=== PATIENT | female | born 1960 | race African-American/Black ===

== ENCOUNTER 2017-03-26 20:45 | Inpatient (IN) | payer SELFPAY ==
[~2017-03-26 20:45] MED LIST: ISOVUE-370 76%-LOCM 1 ML ONE
[2017-03-26 22:18] LABS: #Basophils 0.1 thou/uL (0.0-0.2); #Eosinphils 0.2 thou/uL (0.0-0.7); #Lymphocytes 3.7 thou/uL (1.20-3.40); #Monocytes 0.8 thou/uL (0.11-0.59); #Neutrophils 9.3 thou/uL (1.40-6.50); %Basophils 0.7 % (0.0-1.0); %Eosinophils 1.3 % (0.0-10.0); %Lymphocytes 26.4 % (21.0-51.0); %Monocytes 5.5 % (0.0-10.0); Hematocrit 43.9 % (36.0-47.0); Mean Platelet Volume 8.4 fL (7.4-10.4); Red Blood Cell (RBC) Count 4.52 mill/uL (4.20-5.40)
[2017-03-26] MEDS ORDERED: Ondansetron HCl/PF 4 MG/2 ML Vial ONE (22:26)
[2017-03-26 22:35] LABS: Lactic Acid - Sepsis 1.2 mmol/L (0.5-2.2)
[2017-03-26 22:39] LABS: ALT (SGPT) 25 U/L (8-55); AST (SGOT) 20 U/L (5-34); Alkaline Phosphatase 245 U/L (40-150); Anion Gap 13 mmol/L (10-20); BUN (Urea Nitrogen) 15 mg/dL (9.8-20.1); Bilirubin, Total 0.6 mg/dL (0.2-1.2); Calc. Creatinine Clearance 0 mL/min (70-130); Calcium 9.6 mg/dL (7.8-10.44); Carbon Dioxide 27 mmol/L (22-29); Chloride 94 mmol/L (98-107); Estimated GFR-MDRD 57; Globulin 4.2 g/dL (2.4-3.5); Protein, Total 7.6 g/dL (6.0-8.3)
--- NOTE | 2017-03-26 22:51 | CT ---
CT PELVIS WITH IV CONTRAST 03/26/17 HISTORY: Rule out rectal/perirectal abscess. Abscess of buttock for three days. FINDINGS: There is inflammatory change in the inferomedial aspect of the right buttock within the subcutaneous fat with a poorly loculated fluid collection measuring 5 x 2.5 cm. This does not appear to extend i n the rectal/perirectal region though there is some inflammatory stranding that extends superiorly. No bony destruction is seen in the pelvis and the hips. The uterus is present. The urinary bladder i s well distended. No free air, free fluid or lymphadenopathy is noted in the pelvis. A normal appear ing appendix is noted. IMPRESSION: Phlegmonous change/early abscess formation in the udhxcc-cfhjbqo-wgwyol aspect of the right buttock measuring 5 x 2.5 cm. POS: [facility]
[2017-03-26] MEDS ORDERED: Lidocaine 1% (PF) 30 ML VIAL ONE (23:55)
[2017-03-27] MEDS ORDERED: Piperacillin/Tazobactam 3.375 GM VIAL ONE
[2017-03-27] MEDS ORDERED: Insulin Regular 300 UNITS/3 ML VIAL ONE (01:40)
[2017-03-27] MEDS ORDERED: Ondansetron ODT 4 MG TAB SL PRN (02:03)
[2017-03-27] MEDS ORDERED: HYDROcodone/Acetaminophen 5/325 mg Tablet PO PRN ×2 (02:03)
[2017-03-27] MEDS ORDERED: Ondansetron HCl/PF 4 MG/2 ML Vial IVP PRN (02:03)
[2017-03-27] MEDS ORDERED: Sodium Chloride 0.9% 1,000 ML IV SCH (02:03)
[2017-03-27] MEDS ORDERED: Dextrose 50% Abboject 50 ML SYRINGE SLOW IVP PRN (02:17)
[2017-03-27] MEDS ORDERED: Ondansetron ODT 4 MG TAB PO PRN (02:17)
[2017-03-27] MEDS ORDERED: Acetaminophen 650 MG Suppository PR PRN (02:17)
[2017-03-27] MEDS ORDERED: Insulin Regular 300 UNITS/3 ML VIAL SC PRN (02:17)
[2017-03-27] MEDS ORDERED: Dextrose 5% in Water 1,000 ML IV PRN (02:17)
[2017-03-27 02:52] LABS: Hemoglobin A1c 16.5 % (4.0-6.0)
[2017-03-27 02:55] VITALS: BMI 26.6
[2017-03-27] MEDS: Sodium Chloride 0.9% 1,000 ML IV SCH ×3 (03:20→20:34)
[2017-03-27] MEDS: Insulin Regular 300 UNITS/3 ML VIAL SC PRN (05:16)
[2017-03-27] MEDS ORDERED: Piperacillin/Tazobactam 4.5 GM in Sodium Chloride 0.9% 100 ML IVPB SCH (06:00)
[2017-03-27 07:10] LABS: Hematocrit 44.7 % (36.0-47.0); Mean Platelet Volume 8.7 fL (7.4-10.4); Neutrophil 62 % (42-75); Red Blood Cell (RBC) Count 4.54 mill/uL (4.20-5.40); White Blood Cell (WBC) Count 11.9 thou/uL (4.8-10.8)
[2017-03-27 07:15] LABS: ALT (SGPT) 22 U/L (8-55); AST (SGOT) 23 U/L (5-34); Alkaline Phosphatase 195 U/L (40-150); Anion Gap 12 mmol/L (10-20); BUN (Urea Nitrogen) 9 mg/dL (9.8-20.1); Bilirubin, Total 0.8 mg/dL (0.2-1.2); Calc. Creatinine Clearance 91 mL/min (70-130); Calcium 8.8 mg/dL (7.8-10.44); Carbon Dioxide 22 mmol/L (22-29); Chloride 104 mmol/L (98-107); Estimated GFR-MDRD Greater than 90; Globulin 3.7 g/dL (2.4-3.5); Protein, Total 6.7 g/dL (6.0-8.3)
--- NOTE | 2017-03-27 08:11 | HP-2 ---
CODE STATUS: FULL. PRIMARY CARE PHYSICIAN: None. ATTENDING: Dr. Rin Huang. RESIDENT: Danae Parada DO. HISTORIAN: Patient. CHIEF COMPLAINT: Pain on buttock. HISTORY OF PRESENT ILLNESS: Patient is a 56-year-old -[place] female with past medical hist ory of diabetes mellitus, COPD, and poor medical compliance here with 3 day onset of pain in right b uttock started out as a small pimple. No drainage, no fever. Has tried warm soaks in the tub witho ut relief. Patient used to take Levemir 30 units in a.m. and 26 units in p.m. Has been off all med ications for 2 years since moving from [place]. She has had two prior abscesses in this area. In the ER, she was given 1 liter normal saline, 1 gram of vancomycin, 3.375 grams of Zosyn, 4 mg of mor phine and 4 mg of ondansetron. PAST MEDICAL HISTORY: 1. Diabetes mellitus type 2. 2. Chronic obstructive pulmonary disease. 3. Neuropathy. PAST SURGICAL HISTORY: None. ALLERGIES: LISINOPRIL causing angioedema. MEDICATIONS: None. FAMILY HISTORY: Noncontributory. SOCIAL HISTORY: Tobacco use, smokes 3 cigarettes per day. Denies alcohol use. Does smoke marijuan a daily. REVIEW OF SYSTEMS: General: Negative for fever, chills. Negative for night sweats. Respiratory: Negative for cough, congestion, shortness of breath. Cardiovascular: Negative for chest pain. Ga strointestinal: Negative for nausea, vomiting, diarrhea or constipation. Genitourinary: Negative for discharge. Skin: Positive for lesions on the right buttock. Musculoskeletal: Positive for kel n and tenderness. Neurologic: Negative for weakness or numbness. PHYSICAL EXAMINATION: VITAL SIGNS: Blood pressure 114/68, pulse 98, respiratory rate 16, T-max 99.4, pulse ox 98% on room air, current weight 70.31 kilograms. GENERAL: Alert and oriented x4, in no acute distress. Well-developed and appropriately interactive . EYES: EOMI. Conjunctivae within normal limits. NECK: Supple. CARDIOVASCULAR: Tachycardic with a regular rhythm. No murmurs or gallops Radial pulses 2+. RESPIRATORY: Normal effort, no retractions, inspiratory wheezes throughout. SKIN: Warm and dry with a 6 x 6 cm indurated area with surrounding fluctuance on the right medial c left. No drainage, no warmth, no erythema. EXTREMITIES: No clubbing or cyanosis. MUSCULOSKELETAL: Structure within normal limits. NEUROLOGIC: No focal deficits. PSYCHIATRIC: Appropriate. LABORATORY DATA: CBC, white blood cell count 14.0, hemoglobin 14.3, hematocrit 43.9, platelets 236. CMP: Sodium 130, potassium 4.3, chloride 94, CO2 of 27, BUN 15, creatinine 1.19, glucose 532, raul cium 9.7, total protein 7.6, albumin 3.4, total bilirubin 0.6, AST 20, ALT 25, alkaline phosphatase 245. Lactic acid 1.2. Anion gap is 9, corrected was 4. Albumin is 10.5. IMAGING: CT of the pelvis with IV contrast was performed, which showed phlegmonous change and early abscess formation in the inferior posterior medial aspect of the right buttock measuring 5 x 2.5 cm . ASSESSMENT AND PLAN: 1. Right buttock skin abscess - originally met systemic inflammatory response syndrome criteria wit h initial tachycardia and elevated white blood cells with source of infection. The patient has norm al lactic acid level and does not appear septic. We will transition to p.o. Bactrim for 5-7 days a fter I\T\D done in the ED. IV normal saline at 120 mL per hour. Admit to medical and expected jose th of stay is 1-2 days. Wound culture and blood cultures pending. 2. Diabetes mellitus, uncontrolled. Ten units of regular insulin now, we will make further adjustm ents after knowing how her body respond to this. Hemoglobin A1c to determine need for insulin versu s p.o. medications. Sliding scale insulin a.c. and at bedtime, Accu-Cheks. 3. Chronic obstructive pulmonary disease, wheezing on physical exam, patient reports at baseline, n o shortness of breath. P.r.nLuis Monk, outpatient followup. 4. Tobacco use, counseled on cessation. 5. Elevated alkaline phosphatase, likely acute phase reactant. We will repeat in the morning. 6. Marijuana abuse, counseling on cessation. 7. Venous thromboembolism prophylaxis, sequential compression devices. 8. Acute kidney injury versus chronic kidney disease. We will repeat in the morning, likely acute kidney injury secondary to dehydration. Disposition and length of hospital stay: 1-2 days. Symptomatic medications will be provided. History and physical exam as well as management was discussed with Dr. Rin Huang.
[2017-03-27] MEDS ORDERED: Sulfameth/Trimethoprim DS 800-160mg TAB PO SCH (09:00)
[2017-03-27] MEDS ORDERED: FLU VACC QS2017-18 36 mo. & older 0.5 ML SYRINGE IM ONE (09:00)
[2017-03-27] MEDS ORDERED: Insulin NPH/Reg Insulin Hm 300 UNITS/3 ML VIAL SC SCH ×2 (10:30→16:30)
--- NOTE | 2017-03-27 15:29 | ULT ---
RIGHT UPPER QUADRANT SONOGRAM: History: Right upper quadrant pain. FINDINGS: Biliary sludge is present within the dependent portion of the gallbladder lumen. No gallbladder wall thickening or pericholecystic fluid are apparent. Common duct is dilated at 1.0 cm. Liver is unrema rkable without focal mass or intrahepatic biliary dilatation. IMPRESSION: 1. Biliary sludge within the gallbladder is consistent with chronic gallbladder dyskinesis. 2. Dilated common duct of 1.0 cm. Clinical correlation regarding other signs and symptoms of central biliary obstruction is required. Please consider gastroenterologic consultation. CT of the pancreas could be used for a better delineation of the region of the ampulla of Vater. POS: [facility]
[2017-03-27] MEDS: Sulfamethoxazole/Trimethoprim 160 MG in Dextrose 5% in Water 250 ML IVPB SCH ×2 (20:31)
[2017-03-28] MEDS: Acetaminophen 325 MG TAB PO PRN ×2 (01:20→18:16)
[2017-03-28] MEDS: Insulin Regular 300 UNITS/3 ML VIAL SC PRN ×2 (05:13→11:28)
[2017-03-28 06:36] LABS: ALT (SGPT) 23 U/L (8-55); AST (SGOT) 30 U/L (5-34); Alkaline Phosphatase 174 U/L (40-150); Anion Gap 9 mmol/L (10-20); BUN (Urea Nitrogen) 8 mg/dL (9.8-20.1); Bilirubin, Total 0.4 mg/dL (0.2-1.2); Calc. Creatinine Clearance 91 mL/min (70-130); Calcium 8.5 mg/dL (7.8-10.44); Carbon Dioxide 23 mmol/L (22-29); Chloride 107 mmol/L (98-107); Estimated GFR-MDRD Greater than 90; Globulin 3.3 g/dL (2.4-3.5); Protein, Total 6.1 g/dL (6.0-8.3)
[2017-03-28 06:37] LABS: #Eosinphils 0.2 thou/uL (0.0-0.7); #Lymphocytes 2.6 thou/uL (1.20-3.40); #Monocytes 0.4 thou/uL (0.11-0.59); #Neutrophils 3.8 thou/uL (1.40-6.50); %Basophils 0.4 % (0.0-1.0); %Eosinophils 3.1 % (0.0-10.0); %Lymphocytes 36.7 % (21.0-51.0); %Monocytes 6.1 % (0.0-10.0); Hematocrit 39.7 % (36.0-47.0); Red Blood Cell (RBC) Count 4.02 mill/uL (4.20-5.40)
--- NOTE | 2017-03-28 06:39 | PDOC.FM ---
- Subjective Subjective: Patient states she did well overnight, just got a little short of breath because of her COPD. States that she has a pump at home but cannot remember what medication it is. She only needs to use it occasionally. She improved last night with a breathing treatment. She denies fevers, chills, chest pain, n /v/d/abd pain. I&D site is painless and doing well. She states that she has not had a BM since admission but she states that she is also not walking around the hospital, only ambulating to go to bathroom. - Objective MAR Reviewed: Yes Vital Signs & Weight: Vital Signs (12 hours) Temp Pulse Resp BP Pulse Ox 03/28/17 04:00 97.8 F 72 18 108/69 93 L 03/28/17 00:00 98.3 F 92 18 94/55 L 96 03/27/17 22:18 78 16 98 03/27/17 20:00 99.9 F H 77 18 108/67 97 03/27/17 19:37 99.9 F H 77 18 96 I&O: 03/26/17 03/27/17 03/28/17 06:59 06:59 06:59 Intake Total 700 1989 Balance 700 1989 Result Diagrams: 03/28/17 05:27 03/28/17 05:27 Phys Exam - Physical Examination Constitutional: NAD HEENT: moist MMs, sclera anicteric Neck: supple, full ROM Respiratory: no wheezing, no rales, no rhonchi, clear to auscultation bilateral Cardiovascular: RRR, no significant murmur, no rub Gastrointestinal: soft, non-tender, no distention, positive bowel sounds Musculoskeletal: no edema, pulses present Neurological: non-focal, moves all 4 limbs Psychiatric: A&O x 3 Dx/Plan (1) Sepsis Code(s): A41.9 - SEPSIS, UNSPECIFIED ORGANISM Status: Resolved Plan: Initially met SIRS criteria with tachycardia and elevated WBC count with source of infection. -Sepsis is now resolved, stable vitals, down-trending WBC count -continue to monitor vitals -continue bactrim (2) Diabetes mellitus Code(s): E11.9 - TYPE 2 DIABETES MELLITUS WITHOUT COMPLICATIONS Status: Acute Plan: HbA1c: 16.5 on admission, has not taken insulin in years -20U BID of 70/30 yesterday, blood sugars ranged from 140-260 -increasing to 25U BID today -continue accuchecks -continue mild SSI -consulted case management to work on funding for insulin at d/c -patient will need close follow up outpatient for diabetes management (3) Abscess of right buttock Code(s): L02.31 - CUTANEOUS ABSCESS OF BUTTOCK Status: Acute Plan: S/p I&D -monitor for signs of worsening infection -continue abx (4) HOLLY (acute kidney injury) Code(s): N17.9 - ACUTE KIDNEY FAILURE, UNSPECIFIED Status: Acute Plan: Initial Cr 1.19 Has since resolved, continue to monitor (5) Elevated alkaline phosphatase level Status: Acute Plan: RUQ yesterday showed biliary sludge and biliary dyskinesia, common bile duct 1.0 cm -pt may need OP GI work up -not currently having RUQ abd pain (6) COPD (chronic obstructive pulmonary disease) Status: Acute Plan: Received Breathing treatment last night -lungs are clear now -no dyspnea -PRN anjana (7) Tobacco use Code(s): Z72.0 - TOBACCO USE Status: Acute (8) Marijuana use Code(s): F12.90 - CANNABIS USE, UNSPECIFIED, UNCOMPLICATED Status: Acute
[2017-03-28] MEDS ORDERED: Insulin NPH/Reg Insulin Hm 300 UNITS/3 ML VIAL SC SCH (07:30)
[2017-03-28] MEDS: Sulfamethoxazole/Trimethoprim 160 MG in Dextrose 5% in Water 250 ML IVPB SCH ×4 (08:45→21:25)
[2017-03-28] MEDS: Sodium Chloride 0.9% 1,000 ML IV SCH ×2 (08:45→21:42)
[2017-03-28] MEDS: Polyethylene Glycol 3350 17 GM Packet PO SCH (11:21)
--- NOTE | 2017-03-28 14:09 | ADD-PRG ---
ADDENDUM: 03/28/2017 This is an addendum to the note of Dr. Tra Leo. Ms. Romeo is a pleasant 56-year-old black female who was admitted with a right buttock abscess. Oscar clifton is a very poorly controlled type 2 diabetic and also has COPD. She was incidentally noted to have an elevated alkaline phosphatase and a subsequent right upper quadrant ultrasound showed dilation o f the common bile duct. Before discharge, we will consult GI to see if ERCP is indicated. However, the patient denies any abdominal pain either on this hospitalization or remotely. We will also dis charge on appropriate oral antibiotics for followup at [facility].
--- NOTE | 2017-03-28 15:34 | CON ---
DATE OF CONSULTATION: 03/28/2017 REFERRING PHYSICIAN: Tra Leo M.D., [facility] Practice Service. REASON FOR CONSULTATION: Abnormal abdominal sonogram showing dilation of common bile duct to 1 cm. HISTORY OF PRESENT ILLNESS: Ms. Nanci Romeo is a 56-year-old female hospitalized with cellulitis of abscess over the right back area. She is on antibiotic therapy. The patient has diabetes mellitus and has been on insulin before. She was living in [place] before. She moved to [place] 3 years ago. Since she moved to [place] she stopped taking all the medicine and has been mostl y on diet and her blood sugar was well controlled. The patient also has history of COPD and periphe ral neuropathy. She does smoke marijuana to get relieve from her peripheral neuropathy. She tells m e when she smokes marijuana she does not take medicine for the next 3-4 days. The patient has no ab dominal pain, no nausea or vomiting. She came to the ER basically because of right buttock abscess. She was found to have elevated alkaline phosphatase 243. An abdominal sonogram shows what appears to have biliary sludge and also receives common bile duct measuring approximately 1 cm. The patien t has no right upper quadrant pain, nausea, vomiting. She has good appetite. She has some vague ab dominal pain which was more actually lateral than medial. The pain is more over the flank area and also right upper chest. The patient's pain occurs at random and does not occur with meals. She bee d no nausea, nor vomiting. Her bowel movements are fairly regular. She usually [facility] a day. However, since Tuesday she had no stool and today she had a stool today. No hematoche marcos or melena. She has no other relevant history. ALLERGIES: None. SOCIAL HISTORY: The patient is a smoker. She smokes 1-3 packs of cigarettes per day for the last s everal years ago, but cut down to about 8-9 cigarettes per day. She does not drink alcohol. No his tory of drug abuse, but does use marijuana to get relief from neuropathic pain. MEDICAL ILLNESSES: 1. Diabetes mellitus. 2. Chronic obstructive pulmonary disease. 3. Peripheral neuropathy. SURGERIES: None. FAMILY HISTORY: Father of mesothelioma. Her mother of a brain tumor. There is no histor y of CVA, any heart disease in the family. CURRENT MEDICATIONS: List reviewed. REVIEW OF SYSTEMS: CARDIAC NURSE: No history of TIA, no syncope, no seizure disorder, no chronic headache. RESPIRATORY: History of coughing off and on. No history of hemoptysis. No history of dyspnea. CARDIOVASCULAR: No chest pain, no palpitation, no dyspnea, orthopnea or PND. GASTROINTESTINAL: No abdominal pain, nausea, vomiting. No hematochezia or melena. GENITOURINARY: No dysuria, hematuria or frequency of urination. MUSCULOSKELETAL/ENDOCRINE/HEMATOLOGICAL: . CARDIAC NURSE: She has history of peripheral neuropathy and does smoke marijuana off and on to get some relie f. PHYSICAL EXAMINATION: GENERAL: The patient appears very comfortable. She is thin built. She is awake, alert, and commun icative. She is in no distress. VITAL SIGNS: Stable. She is afebrile. Pulse is 75, blood pressure 97/59. HEENT: Conjunctivae clear. NECK: Supple. No adenitis or thyromegaly noted. CARDIOVASCULAR: First and second heart sounds normal. LUNGS: Clear to auscultation. ABDOMEN: Soft to palpate. Abdomen is nontender. There is no organomegaly or masses. Bowel sounds are normal. EXTREMITIES: Reveal no edema. LABORATORY DATA: From today, WBC 7000, hemoglobin 12.7, hematocrit 39.7, MCV 98.7, platelet count 1 10,000, polymorphs 53, lymphocytes 36. Serum chemistries show sodium 135, potassium 4, chloride 107 , bicarbonate 23, BUN is 9, creatinine 0.76, glucose 263, calcium 8.5, bilirubin 0.4, AST 30, ALT 23 , alkaline phosphatase 174. Total protein 6.1. Abdominal sonogram shows biliary sludge and also common bile duct at 1 cm. IMPRESSION: 1. A 56-year-old female with a mildly elevated alkaline phosphatase, sonogram show ing dilated common bile duct. She had no definite pancreatic mass. She has really no specific GI s ymptoms. There is some abdominal pain, but the abdominal pain appears more lateral abdominal pain t zuniga right lower abdominal pain. 2. Right buttock abscess. 3. Diabetes mellitus. 4. Chronic obstructive pulmonary disease. 5. History of peripheral neuropathy. RECOMMENDATIONS: Obtain abdominal CAT scan and will make further recommendations. If the CAT scan does not show a pancreatic mass, may consider MRCP. I will make further recommendations after CAT s can of abdomen.
[2017-03-28] MEDS: Insulin NPH/Reg Insulin Hm 300 UNITS/3 ML VIAL SC SCH (18:17)
[2017-03-29 04:30] LABS: #Eosinphils 0.3 thou/uL (0.0-0.7); #Lymphocytes 2.9 thou/uL (1.20-3.40); #Monocytes 0.5 thou/uL (0.11-0.59); %Basophils 0.2 % (0.0-1.0); %Lymphocytes 43.3 % (21.0-51.0); %Monocytes 7.4 % (0.0-10.0); Hematocrit 39.2 % (36.0-47.0); Mean Platelet Volume 8.2 fL (7.4-10.4); Red Blood Cell (RBC) Count 4.01 mill/uL (4.20-5.40); White Blood Cell (WBC) Count 6.7 thou/uL (4.8-10.8)
[2017-03-29 05:25] LABS: ALT (SGPT) 27 U/L (8-55); AST (SGOT) 33 U/L (5-34); Alkaline Phosphatase 151 U/L (40-150); Anion Gap 11 mmol/L (10-20); BUN (Urea Nitrogen) 7 mg/dL (9.8-20.1); Bilirubin, Total 0.2 mg/dL (0.2-1.2); Calc. Creatinine Clearance 108 mL/min (70-130); Calcium 8.7 mg/dL (7.8-10.44); Carbon Dioxide 23 mmol/L (22-29); Chloride 109 mmol/L (98-107); Estimated GFR-MDRD Greater than 90; Globulin 3.3 g/dL (2.4-3.5); Protein, Total 5.9 g/dL (6.0-8.3)
--- NOTE | 2017-03-29 06:39 | PDOC.FM ---
- Subjective Subjective: Patient doing well this morning. Just returned from abdominal CT when I entered room. States she is feeling well. No chest pain, fever, chills, dyspnea , n/v/d. She did require a breathing treatment last night but feels better this morning. - Objective MAR Reviewed: Yes Vital Signs & Weight: Vital Signs (12 hours) Temp Pulse Resp BP Pulse Ox 03/28/17 20:00 98.4 F 70 16 127/80 97 03/28/17 19:42 98.4 F 70 16 97 Weight Admit Weight 70.3 kg Weight 70.3 kg I&O: 03/27/17 03/28/17 03/29/17 06:59 06:59 06:59 Intake Total 700 1989 Balance 700 1989 Result Diagrams: 03/29/17 04:02 03/29/17 04:02 Phys Exam - Physical Examination Constitutional: NAD HEENT: moist MMs, sclera anicteric Neck: supple, full ROM Respiratory: no wheezing, no rales, no rhonchi, clear to auscultation bilateral Cardiovascular: RRR, no significant murmur, no rub Gastrointestinal: soft, non-tender, no distention Musculoskeletal: no edema Neurological: non-focal, moves all 4 limbs Psychiatric: A&O x 3 Skin: cap refill <2 seconds Dx/Plan (1) Sepsis Code(s): A41.9 - SEPSIS, UNSPECIFIED ORGANISM Status: Resolved Plan: Initially met SIRS criteria with tachycardia and elevated WBC count with source of infection. -secondary to buttock abscess -Sepsis is now resolved, stable vitals, down-trending WBC count, now 6.7 -continue to monitor vitals -Switch to PO bactrim (2) Diabetes mellitus Code(s): E11.9 - TYPE 2 DIABETES MELLITUS WITHOUT COMPLICATIONS Status: Acute Plan: HbA1c: 16.5 on admission, has not taken insulin in years -20U BID of 70/30 yesterday, blood sugars ranged from 88-260 -changed to 22U BID -continue accuchecks -continue mild SSI -will go home with NPH/reg 70/30 -patient will need close follow up outpatient for diabetes management (3) Abscess of right buttock Code(s): L02.31 - CUTANEOUS ABSCESS OF BUTTOCK Status: Acute Plan: S/p I&D -monitor for signs of worsening infection -continue abx -continue wound care (4) HOLLY (acute kidney injury) Code(s): N17.9 - ACUTE KIDNEY FAILURE, UNSPECIFIED Status: Acute Plan: Initial Cr 1.19, now 0.64 Has since resolved, continue to monitor (5) Elevated alkaline phosphatase level Status: Acute Plan: RUQ yesterday showed biliary sludge and biliary dyskinesia, common bile duct 1.0 cm -not currently having RUQ abd pain, completely asymptomatic -GI consulted, Ordered CT abd/pelv for today -will follow recs (6) COPD (chronic obstructive pulmonary disease) Status: Acute Plan: Chronic, treated with PRN inhaler at home -no dyspnea -PRN duonebs -will discharge with daily medication (7) Tobacco use Code(s): Z72.0 - TOBACCO USE Status: Acute (8) Marijuana use Code(s): F12.90 - CANNABIS USE, UNSPECIFIED, UNCOMPLICATED Status: Acute
[2017-03-29] MEDS: Sodium Chloride 0.9% 1,000 ML IV SCH ×3 (07:12→16:36)
[2017-03-29] MEDS: Polyethylene Glycol 3350 17 GM Packet PO SCH (07:51)
[2017-03-29] MEDS: Sulfameth/Trimethoprim DS 800-160mg TAB PO SCH ×2 (07:51→20:44)
[2017-03-29] MEDS: Insulin NPH/Reg Insulin Hm 300 UNITS/3 ML VIAL SC SCH ×2 (07:51→16:44)
[2017-03-29] MEDS ORDERED: Ibuprofen 600 MG TAB PO PRN (10:22)
[2017-03-29] MEDS: Insulin Regular 300 UNITS/3 ML VIAL SC PRN (11:38)
--- NOTE | 2017-03-29 11:57 | ADD-PRG ---
DATE OF SERVICE: 03/29/2017 This is an addendum to the note of Dr. Tra Leo. Ms. Romeo states that she feels very well this morning. She is not short of breath. She is having no abdominal pain. She was seen in consultation by the GI Service and we appreciate their input. We are awaiting results of an abdominal CT scan to proceed with a possible ERCP as per GI.
--- NOTE | 2017-03-29 12:36 | CT ---
CT ABDOMEN AND PELVIS WITH AND WITHOUT CONTRAST: Date: 03/29/17 HISTORY: Pancreas protocol. Dilated common bile duct. Abscess on buttock. COMPARISON: CT pelvis dated 03/26/17, as well as gallbladder ultrasound dated 03/27/17. FINDINGS: The precontrast of the abdomen demonstrates mild atherosclerotic plaque of the aorta. There is dilat ation of the common bile duct down to the ampulla of Vater. The pancreatic duct size is at the upper limits of normal. No abnormal enhancing mass within the pancreatic head. Hypodensities present of t he inferior right kidney. Gallbladder, liver, and spleen are normal. No intrahepatic biliary dilatation. The appendix is normal. The right gluteal fold inflammation is improving. Small volume free fluid in the pelvis. The appendix is visualized and is normal. There are right external iliac lymph nodes which are mildly prominent and likely reactive. IMPRESSION: 1. Mild extrahepatic biliary dilatation measuring up to just under 1.0 cm without intrahepatic bili varghese dilatation. There is mild prominence of the pancreatic duct. 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 ERCP is recommended. No abnormal mass. 2. A few separate foci of arterial hyperenhancement in the right lobe of the liver not present on t he portal venous phase likely a sequelae of shunting. 3. Improving inflammatory response along the right gluteal fold likely reactive right inguinal lymp h nodes. POS: [facility]
[2017-03-29] MEDS: Ipratropium Bromide 2.5 ml Neb NEB SCH ×2 (13:50→18:41)
[2017-03-29] MEDS: Atorvastatin Calcium 20 MG TAB PO SCH (20:44)
[2017-03-30] MEDS: Ipratropium Bromide 2.5 ml Neb NEB SCH ×4 (00:33→18:28)
[2017-03-30] MEDS: Sodium Chloride 0.9% 1,000 ML IV SCH ×3 (03:04→20:46)
[2017-03-30 05:51] LABS: ALT (SGPT) 27 U/L (8-55); AST (SGOT) 31 U/L (5-34); Alkaline Phosphatase 152 U/L (40-150); Anion Gap 11 mmol/L (10-20); BUN (Urea Nitrogen) 7 mg/dL (9.8-20.1); Bilirubin, Total 0.3 mg/dL (0.2-1.2); Calc. Creatinine Clearance 92 mL/min (70-130); Calcium 8.8 mg/dL (7.8-10.44); Carbon Dioxide 25 mmol/L (22-29); Chloride 105 mmol/L (98-107); Estimated GFR-MDRD Greater than 90; Globulin 3.3 g/dL (2.4-3.5); Protein, Total 6.1 g/dL (6.0-8.3)
[2017-03-30 06:24] LABS: Hematocrit 40.3 % (36.0-47.0); Neutrophil 33 % (42-75); Reactive Lymphocytes 7 % (0-10); Red Blood Cell (RBC) Count 4.11 mill/uL (4.20-5.40); White Blood Cell (WBC) Count 6.5 thou/uL (4.8-10.8)
--- NOTE | 2017-03-30 06:34 | PDOC.FM ---
- Subjective Subjective: Ms. Romeo states she is doing well this morning, has no questions or concerns. She states that she is ready to go home. - Objective MAR Reviewed: Yes Vital Signs & Weight: Vital Signs (12 hours) Temp Pulse Resp BP Pulse Ox 03/30/17 00:33 83 12 03/29/17 20:00 98.4 F 83 12 112/70 97 03/29/17 18:41 78 16 97 Weight Admit Weight 70.3 kg Weight 70.3 kg I&O: 03/28/17 03/29/17 03/30/17 06:59 06:59 06:59 Intake Total 1989 1989 5160 Balance 1989 1989 5160 Result Diagrams: 03/30/17 04:23 03/30/17 04:23 Phys Exam - Physical Examination Constitutional: NAD HEENT: moist MMs, sclera anicteric, oral pharynx no lesions Neck: supple, full ROM Respiratory: no wheezing, no rales, no rhonchi, clear to auscultation bilateral Cardiovascular: RRR, no significant murmur, no rub Gastrointestinal: soft, non-tender, no distention Musculoskeletal: no edema, pulses present Neurological: non-focal, moves all 4 limbs Psychiatric: normal affect, A&O x 3 Dx/Plan (1) Sepsis Code(s): A41.9 - SEPSIS, UNSPECIFIED ORGANISM Status: Resolved Plan: Initially met SIRS criteria with tachycardia and elevated WBC count with source of infection. -secondary to buttock abscess -Sepsis is now resolved, stable vitals, down-trending WBC count, now 6.7 -continue to monitor vitals -Switch to PO bactrim, will be discharged with this to complete ten total day course (2) Diabetes mellitus Code(s): E11.9 - TYPE 2 DIABETES MELLITUS WITHOUT COMPLICATIONS Status: Acute Plan: HbA1c: 16.5 on admission, has not taken insulin in years -patient did not get nighttime dose of insulin because blood sugar was 93 -will likely switch back to 20U BID of NPH/reg 70/30 -continue accuchecks -continue mild SSI -will go home with NPH/reg 70/30 -patient will need close follow up outpatient for diabetes management (3) Abscess of right buttock Code(s): L02.31 - CUTANEOUS ABSCESS OF BUTTOCK Status: Acute Plan: S/p I&D -monitor for signs of worsening infection -continue abx -continue wound care -CT abd/pelv showed improvement (4) HOLLY (acute kidney injury) Code(s): N17.9 - ACUTE KIDNEY FAILURE, UNSPECIFIED Status: Acute Plan: Initial Cr 1.19, now 0.75 Has since resolved, continue to monitor (5) Elevated alkaline phosphatase level Status: Acute Plan: RUQ yesterday showed biliary sludge and biliary dyskinesia, common bile duct 1.0 cm -not currently having RUQ abd pain, completely asymptomatic -GI consulted -CT abd/pelv did not show any masses of pancreatic head -will follow recs (6) COPD (chronic obstructive pulmonary disease) Status: Acute Plan: Chronic, treated with PRN inhaler at home -no dyspnea -PRN duonebs -will discharge with spiriva (7) Tobacco use Code(s): Z72.0 - TOBACCO USE Status: Acute (8) Marijuana use Code(s): F12.90 - CANNABIS USE, UNSPECIFIED, UNCOMPLICATED Status: Acute - Plan Plan: Pending GI recs, possible discharge today.
[2017-03-30] MEDS ORDERED: Spiriva 18 MCG CAP (Box of 5 Caps) INH SCH (07:00)
[2017-03-30] MEDS: Insulin NPH/Reg Insulin Hm 300 UNITS/3 ML VIAL SC SCH ×2 (08:17→18:18)
[2017-03-30] MEDS: Polyethylene Glycol 3350 17 GM Packet PO SCH ×2 (08:19→18:18)
[2017-03-30] MEDS: Sulfameth/Trimethoprim DS 800-160mg TAB PO SCH ×2 (08:19→20:45)
--- NOTE | 2017-03-30 11:21 | ADD-PRG ---
DATE OF SERVICE: 03/30/2017 This is an addendum to the note of Dr. Tra Leo. Ms. Romeo again is awake, alert, in no distress. She did have an abnormal CT and ERCP has been rec ommended. The GI doctor will perform this in the morning.
[2017-03-30] MEDS: Insulin Regular 300 UNITS/3 ML VIAL SC PRN (13:22)
[2017-03-30] MEDS ORDERED: ISOVUE-370 76%-LOCM 1 ML ONE (15:56)
[2017-03-30] MEDS: Atorvastatin Calcium 20 MG TAB PO SCH (20:45)
--- NOTE | 2017-03-30 21:26 | PRG ---
DATE OF SERVICE: 03/30/2017 SUBJECTIVE: Ms. Nanci Romeo is a 56-year-old -[place] female hospitalized with abscess of right buttock and has been on antibiotics. She was found to have elevated alkaline phosphatase. Sanchez bsequent workup revealed dilation of the common bile duct. A sonogram was negative for any pancreat ic mass. She had an abdominal CAT scan yesterday. The CAT scan again shows dilation of the common bile duct without any pancreatic masses. It was felt by the radiologist that patient undergo ERCP. At the present time, the patient is asymptomatic. She has no abdominal pain, no nausea or vomiting . PHYSICAL EXAMINATION: VITAL SIGNS: Stable. She appears comfortable. CARDIOVASCULAR/LUNGS: Within normal limits. ABDOMEN: Soft to palpate. No organomegaly. No tenderness. No masses. ASSESSMENT AND PLAN: I did talk to Ms. Romeo about the CAT scan findings and I explained to her th at she probably needs an ERCP. The patient was explained about the ERCP risks including pancreatiti s, perforation, bleeding, etc. The patient is agreeable. I will plan for ERCP tomorrow.
[2017-03-31] MEDS: Ipratropium Bromide 2.5 ml Neb NEB SCH ×3 (00:34→13:00)
[2017-03-31 05:44] LABS: #Basophils 0.1 thou/uL (0.0-0.2); #Eosinphils 0.2 thou/uL (0.0-0.7); #Lymphocytes 2.8 thou/uL (1.20-3.40); #Monocytes 0.5 thou/uL (0.11-0.59); #Neutrophils 3.1 thou/uL (1.40-6.50); %Basophils 1.9 % (0.0-1.0); %Eosinophils 3.6 % (0.0-10.0); %Lymphocytes 40.9 % (21.0-51.0); %Monocytes 7.9 % (0.0-10.0); Hematocrit 42.6 % (36.0-47.0); Mean Platelet Volume 8.3 fL (7.4-10.4); Red Blood Cell (RBC) Count 4.33 mill/uL (4.20-5.40); White Blood Cell (WBC) Count 6.8 thou/uL (4.8-10.8)
[2017-03-31 06:09] LABS: ALT (SGPT) 31 U/L (8-55); AST (SGOT) 36 U/L (5-34); Alkaline Phosphatase 174 U/L (40-150); Anion Gap 7 mmol/L (10-20); BUN (Urea Nitrogen) 10 mg/dL (9.8-20.1); Bilirubin, Total 0.2 mg/dL (0.2-1.2); Calc. Creatinine Clearance 92 mL/min (70-130); Calcium 9.2 mg/dL (7.8-10.44); Carbon Dioxide 29 mmol/L (22-29); Chloride 104 mmol/L (98-107); Estimated GFR-MDRD Greater than 90; Globulin 3.5 g/dL (2.4-3.5); Protein, Total 6.5 g/dL (6.0-8.3)
--- NOTE | 2017-03-31 06:18 | PDOC.FM ---
- Subjective Subjective: Patient is doing well this morning, she states that she urinated several times more than normal last night. Denies fever, dysuria, abd pain. She states that she is nervous about the procedure this morning because she has never had surgery before. - Objective MAR Reviewed: Yes Vital Signs & Weight: Vital Signs (12 hours) Temp Pulse Resp BP Pulse Ox 03/31/17 00:34 12 03/30/17 20:00 98.1 F 74 16 107/65 96 03/30/17 19:53 98.1 F 74 18 96 03/30/17 18:28 67 12 97 Weight Admit Weight 70.3 kg Weight 70.3 kg I&O: 03/29/17 03/30/17 03/31/17 06:59 06:59 06:59 Intake Total 1989 5160 1380 Balance 1989 5160 1380 Result Diagrams: 03/31/17 05:14 03/31/17 05:14 Phys Exam - Physical Examination Constitutional: NAD HEENT: moist MMs, sclera anicteric Neck: supple, full ROM Respiratory: no wheezing, no rales, no rhonchi, clear to auscultation bilateral Cardiovascular: RRR, no significant murmur, no rub Gastrointestinal: soft, non-tender, no distention Musculoskeletal: no edema, pulses present Neurological: non-focal, moves all 4 limbs Psychiatric: A&O x 3 Dx/Plan (1) Sepsis Code(s): A41.9 - SEPSIS, UNSPECIFIED ORGANISM Status: Resolved Plan: Initially met SIRS criteria with tachycardia and elevated WBC count with source of infection. -secondary to buttock abscess -Sepsis is now resolved, stable vitals, down-trending WBC count, now 6.5 -continue to monitor vitals -Switch to PO bactrim, will be discharged with ten day course -will be discharged when cleared by GI (2) Diabetes mellitus Code(s): E11.9 - TYPE 2 DIABETES MELLITUS WITHOUT COMPLICATIONS Status: Acute Plan: HbA1c: 16.5 on admission, has not taken insulin in years -fasting this morning was 92 -will be discharged with 20U BID -continue accuchecks -continue mild SSI -will go home with NPH/reg 70/30 -patient will need close follow up outpatient for diabetes management (3) Abscess of right buttock Code(s): L02.31 - CUTANEOUS ABSCESS OF BUTTOCK Status: Acute Plan: S/p I&D -monitor for signs of worsening infection -continue abx -continue wound care -CT abd/pelv showed improvement -will do hot sitz baths at home (4) HOLLY (acute kidney injury) Code(s): N17.9 - ACUTE KIDNEY FAILURE, UNSPECIFIED Status: Acute Plan: Initial Cr 1.19, now 0.75 Has since resolved, continue to monitor -stable (5) Elevated alkaline phosphatase level Status: Acute Plan: RUQ yesterday showed biliary sludge and biliary dyskinesia, common bile duct 1.0 cm -not currently having RUQ abd pain, completely asymptomatic -GI consulted -CT abd/pelv did not show any masses of pancreatic head -will follow recs -will be discharged when cleared by GI, Dr. Mckay (6) COPD (chronic obstructive pulmonary disease) Status: Acute Plan: Chronic, treated with PRN inhaler at home -no dyspnea, O2 96% on RA -PRN duonebs -will discharge with spiriva (7) Tobacco use Code(s): Z72.0 - TOBACCO USE Status: Acute (8) Marijuana use Code(s): F12.90 - CANNABIS USE, UNSPECIFIED, UNCOMPLICATED Status: Acute
[2017-03-31] MEDS: Sodium Chloride 0.9% 1,000 ML IV SCH ×2 (06:40→12:20)
[2017-03-31] MEDS: Insulin NPH/Reg Insulin Hm 300 UNITS/3 ML VIAL SC SCH (07:37)
[2017-03-31] MEDS: Sulfameth/Trimethoprim DS 800-160mg TAB PO SCH (07:38)
[2017-03-31] MEDS: Polyethylene Glycol 3350 17 GM Packet PO SCH (07:38)
[2017-03-31 09:15] VITALS: BP 107/70; TEMP 97.5
[2017-03-31] MEDS ORDERED: Iothalamate Meglumine 60% 50 ML VIAL FS ONE (13:14)
[2017-03-31] MEDS ORDERED: Fentanyl 100 MCG/2 ML VIAL ONE (13:48)
[2017-03-31] MEDS ORDERED: Propofol 200 MG/20 ML VIAL ONE (13:56)
[2017-03-31] MEDS ORDERED: Succinylcholine Chloride 20 MG/ML 10 ml SYRINGE FS ONE (13:56)
[2017-03-31] MEDS ORDERED: Dexamethasone 20 MG/5 ML VIAL ONE (13:56)
[2017-03-31] MEDS ORDERED: Ondansetron HCl/PF 4 MG/2 ML Vial ONE (13:56)
[2017-03-31] MEDS ORDERED: Lidocaine 1% PF 5 ML VIAL ONE (13:56)
--- NOTE | 2017-03-31 14:10 | ADD-PRG ---
DATE OF SERVICE: 03/31/2017 This is an addendum to the note of Dr. Tra Leo. Ms. Romeo is scheduled for an ERCP later this afternoon. Further management will depend on results of the ERCP. From a COPD/asthma standpoint, she is clinically stable. Further management again de pends on results of the ERCP, but she will likely be discharged later today or tomorrow.
[2017-03-31] MEDS ORDERED: Promethazine HCl 25 MG/ML VIAL SLOW IVP PRN (15:16)
[2017-03-31] MEDS ORDERED: Ondansetron HCl/PF 4 MG/2 ML Vial IVP PRN (15:16)
--- NOTE | 2017-03-31 15:24 | RAD ---
FOUR INTRAOPERATIVE VIEWS ABDOMEN ERCP: FINDINGS: Four intraoperative images were obtained and demonstrate catheterization and injection of the common bile duct. Radiopaque contrast is seen in the gallbladder, cystic, common hepatic duct, and common bile ducts. IMPRESSION: Intraoperative ERCP images. POS: [facility]
--- NOTE | 2017-03-31 22:50 | OP ---
DATE OF PROCEDURE: 03/31/2017 OPERATIVE PROCEDURE: Endoscopic retrograde cholangiopancreatography. PREOPERATIVE DIAGNOSES: Abnormal liver function tests and abnormal CAT scan showing dilation of the common bile duct. POSTOPERATIVE DIAGNOSES: 1. Normal pancreatic duct. 2. Normal common bile duct, and there was no biliary dilation. 3. Normal papilla. PROCEDURE IN DETAIL: The patient was intubated and was given sedation by Anesthesia Department. Th e patient was transferred to the fluoroscopy table and was placed on the left lateral position and w as turned on the stomach later on. A bite block was placed. A [employer] video duodenoscope under direc t vision was passed down the oropharynx, past the gastroesophageal junction, into stomach and subseq uently into the descending duodenum. The papilla was identified. I do not see any biliary drainage at that time. The papilla appears . A papillotome was used to cannulate the papilla over a g uidewire. No contrast was given. The wire was advanced and fluoroscopy showed wire to be in the pa ncreatic duct. After numerous cannulations and the wire kept going into the pancreatic duct, I did inject less than 1 mL of dye. The pancreatic duct appeared normal. The papillotome was removed. A cannula was used to cannulate the CBD selectively over a guidewire. Upon injection of the co ntrast, the common bile duct appears normal. There were no filling defects. There were no masses s een. The papillotome and cannula were removed. The stomach decompressed. RECOMMENDATIONS: 1. Diet as tolerated. 2. May discharge home tomorrow.
--- NOTE | 2017-04-01 01:20 | DIS-2 ---
DATE OF ADMISSION: 03/27/2017 DATE OF DISCHARGE: 03/31/2017 RESIDENT: Tra Leo MD ADMITTING ATTENDING: Rin Huang MD DISCHARGE ATTENDING: Pillo Haskins MD CONSULTATIONS: 1. Wound Care. 2. Gastroenterology, Dr. Ascencio on 03/28/2017. PROCEDURES: 1. CT of the pelvis. Impression: Phlegmonous change/early abscess formation in the inferior poste rior medial aspect of the right buttock measuring 5 x 2.5 cm. 2. Abdominal ultrasound on 03/27/2017. Impression: Biliary sludge within the gallbladder consiste nt with chronic gallbladder dyskinesis, dilated common bile duct of 1.[address] abdomen and pelvis on 03/29/2017. Impression: Mild extrahepatic biliary dilatation measurin g up to just under 1.0 cm without intrahepatic biliary dilatation. Mild prominence of the pancreati c duct. No abnormal mass, improving inflammatory response along the right gluteal fold likely react chary right inguinal lymph nodes. PRIMARY DIAGNOSES: 1. Abscess of the right buttock. 2. Sepsis. 3. Diabetes mellitus. 4. Elevated alkaline phosphatase level. 5. Chronic obstructive pulmonary disease. 6. Acute kidney injury. 7. Marijuana use. DISCHARGE MEDICATIONS: 1. Lipitor 20 mg p.o. at bedtime. 2. Ibuprofen 600 mg p.o. q.6 hours p.r.n. 3. Novolin 70/30, 22 units subcu b.i.d. a.c. 4. Atrovent 2.5 mL nebs q.6 hours. 5. Bactrim double strength 1 tab p.o. b.i.d. for 7 days. 6. Metformin 500 mg p.o. b.i.d. with meals. DISCONTINUED MEDICATIONS: 1. Zosyn 3.375 grams. 2. Vancomycin 1 gram. 2. [place] 5/325. 3. DuoNeb. 4. Humulin 70/30. 5. MiraLax 17 grams p.o. daily. HISTORY OF PRESENT ILLNESS AND HOSPITAL COURSE: Nanci Romeo is a 56-year-old female with past [facility] history of diabetes, COPD and poor medical compliance, who presents with 3-day onset of pain in the right buttock that started out as a small pimple. There has been no drainage and she has not bee d any fevers. She tried to use warm soaks in the tub without relief. The patient used to take 30 u nits of Levemir in the a.m. and 26 units in the p.m., but has been off all medications for 2 years s eugenio moving from [place] and losing about 60 pounds. She has had 2 abscesses in this area prior to this. In the ER, she was given 1 liter of normal saline, 1 gram of vancomycin, 3.375 grams of Zosy n, 4 mg of morphine and 4 mg of ondansetron. In the ER, she was afebrile with a temperature of 99.4 , blood pressure of 114/68, pulse of 98, respiratory rate 16, pulse ox 98% on room air. Physical ex amination was significant for a warm and dry 6 x 6 cm indurated area with surrounding fluctuance in the right gluteal cleft. No drainage. Labs were significant for white blood cell count of 14.0, a creatinine of 1.19, glucose of 532, alkaline phosphatase of 245, lactic acid 1.2. Patient initially met SIRS criteria, with tachycardia initially and elevated white blood cells with a source of infec tion. The patient did not appear septic and had a normal lactic acid. In the ER, she was transitio jessie to p.o. Bactrim, actually was started on IV Bactrim after incision and drainage was done in the ED. Wound culture and blood cultures were taken. For her diabetes, she was started on 10 units of regular insulin 70/30, knowing that she would likely be discharged on 70/30 because it was more affo rdable. On second day of admission, she was noted to have right upper quadrant tenderness to palpat ion and with elevated alkaline phosphatase. Right upper quadrant ultrasound was ordered and it was evident that she had a 1.0 cm dilatation of the common bile duct. GI was consulted and decided to p erform an ERCP, which was done and was found to be normal and Dr. Ascencio cleared patient for disc harge after the surgery. The patient was patient was continued on IV Bactrim and eventually switche d to p.o. during the admission with the plan for her to complete a 10-day total course of p.o. Bactr im as an outpatient. The patient was stable throughout her admission, symptoms from her buttocks ab scess improved significantly after the incision and drainage. Blood sugar became more controlled on 03/29/2017 with fasting sugars in the 90s and blood sugars ranged anywhere from 90s-160s for the re mainder of the admission on 22 units b.i.d. of 70/30 insulin. The patient was cleared for discharge from a medical standpoint after ERCP. The patient was really anxious to go home. Her daughters, jeri sewell are to give her a ride back to [place] and with the agreement that she would not [facility] and she would follow up with [facility] to manage her diabetes. Wound Care recomm ended hot Sitz baths for the next week for her right buttocks abscess. The patient was in agreement with this plan and stated that she would follow these recommendations. The patient was discharged on 03/31/2017. DISPOSITION: Guarded. DISCHARGE INSTRUCTIONS: 1. Location: Home in [place] with daughters. 2. Diet: Diabetic diet and heart healthy. 3. Activity: As tolerated. 4. Followup: Follow up with [facility] to manage diabetes and to check abscess.
== END 2017-03-31 18:06 | disposition home or self-care (01) | DRG 872 ==
LOC: ERS 20:45 → T4-A 03-27 02:16
PROVIDERS: ADMIT Family Medicine; ATTEND Family Medicine
PROC: 0FJB8ZZ Inspection of Hepatobiliary Duct, Via Natural or Artificial Opening Endoscopic (ICD-10-PCS; principal; 2017-03-31)
PROC: 0FJD8ZZ Inspection of Pancreatic Duct, Via Natural or Artificial Opening Endoscopic (ICD-10-PCS; 2017-03-31)
PROC: BF11YZZ Fluoroscopy of Biliary and Pancreatic Ducts using Other Contrast (ICD-10-PCS; 2017-03-31)
DX: A41.9 Sepsis, unspecified organism (principal); N17.9 Acute kidney failure, unspecified; E11.65 Type 2 diabetes mellitus with hyperglycemia; K83.8 Other specified diseases of biliary tract; L02.31 Cutaneous abscess of buttock; J44.9 Chronic obstructive pulmonary disease, unspecified; K82.8 Other specified diseases of gallbladder; F12.10 Cannabis abuse, uncomplicated; F17.210 Nicotine dependence, cigarettes, uncomplicated; R94.5 Abnormal results of liver function studies; R74.8 Abnormal levels of other serum enzymes; Z91.14 Patient's other noncompliance with medication regimen; Z88.8 Allergy status to other drugs, medicaments and biological substances
CPT/HCPCS: 10060; 36415; 36416; 72193; 74178; 74330; 76705; 80053; 83036; 83605; 83690; 85025; 87040; 94640; 96361; 96365; 96367; 96372; 96375; A4216; J1100; J1610; J1815; J2001; J2270; J2405; J2543; J2704; J3010; J3370; J3490; J7050; J7070; J7620; J7644; Q9961

== ENCOUNTER 2017-07-04 03:10 | Emergency (ER) | payer OTHER, SELFPAY ==
[2017-07-04] MEDS ORDERED: Ondansetron HCl/PF 4 MG/2 ML Vial ONE (03:30)
[2017-07-04 03:42] LABS: Actual Bicarbonate (HCO3a) 24.3 mEq/L (22-26); Base Excess (BEa) -0.2 mEq/L (0 (+/-) 2.5); CO2 Tension 39.1 mmHg (35.0-45.0); O2 Tension (PaO2) 282.5 mmHg (80.0-100.0); pH, Arterial 7.41 (7.35-7.45)
[2017-07-04 03:43] LABS: Calcium, Ionized 1.2 mmol/L (1.12-1.30); Hematocrit-ABG 43.7 % (36.0-47.0); Hemoglobin (Hb) 13.1 g/dL (12.0-16.0)
[2017-07-04 03:44] LABS: ALV-art Gradient 376.625 (0-20); Analyzer IN Cardio ER; Puncture Site RRA
== END 2017-07-04 04:45 | disposition home or self-care (01) ==
LOC: ERS 03:10
DX: T58.91XA Toxic effect of carbon monoxide from unspecified source, accidental (unintentional), initial encounter (principal); J44.9 Chronic obstructive pulmonary disease, unspecified; F17.210 Nicotine dependence, cigarettes, uncomplicated; Z79.4 Long term (current) use of insulin; Z79.899 Other long term (current) drug therapy
CPT/HCPCS: 82805; 96374; 99406; J2405

== ENCOUNTER 2017-08-31 16:01 | Observation (INO) | payer OTHER ==
[2017-08-31] MEDS ORDERED: ISOVUE-370 76%-LOCM 1 ML ONE (16:33)
[2017-08-31 16:38] LABS: Hemoglobin 13.2 g/dL (12.0-16.0); Mean Corpuscular HGB CONC 33.6 g/dL (32.0-36.0); Mean Corpuscular Hemoglobin 31.6 pg (27.0-31.0); Mean Platelet Volume 8.1 fL (7.4-10.4); Platelet Count 223 thou/uL (130-400); Red Blood Cell (RBC) Count 4.17 mill/uL (4.20-5.40); White Blood Cell (WBC) Count 7.4 thou/uL (4.8-10.8)
[2017-08-31 16:43] LABS: Prothrombin Time 12.9 SEC (12.0-14.7)
--- NOTE | 2017-08-31 16:53 | RAD ---
AP VIEW CHEST: 08/31/17 HISTORY: 57-year-old who presents with history of respiratory distress, shortness of breath, chest pain. AP view chest demonstrates the lungs to be well aerated. No evidence of active intrathoracic disease is seen. No evidence of effusions, pneumonia or pneumothorax seen. IMPRESSION: Unremarkable AP view chest. POS: [facility]
[2017-08-31 16:56] LABS: Eosinophils 4 % (0-10); Lymphocytes 64 % (21-51); MDiff Complete? YES; Monocytes 4 % (0-10); Neutrophil 28 % (42-75); PLT Morphology Comment Appears Adequate
[2017-08-31 16:58] LABS: ALT (SGPT) 28 U/L (8-55); AST (SGOT) 25 U/L (5-34); Albumin 3.4 g/dL (3.5-5.0); Alkaline Phosphatase 187 U/L (40-150); Anion Gap 12 mmol/L (10-20); BUN (Urea Nitrogen) 14 mg/dL (9.8-20.1); Bilirubin, Total 0.5 mg/dL (0.2-1.2); CK (CPK) 328 U/L (29-168); Calc. Creatinine Clearance 0 mL/min (70-130); Calcium 9.1 mg/dL (7.8-10.44); Carbon Dioxide 22 mmol/L (22-29); Chloride 103 mmol/L (98-107); Estimated GFR-MDRD 84; Globulin 3.7 g/dL (2.4-3.5); Glucose 302 mg/dL (70-105); Lipase 10 U/L (8-78); Magnesium 1.7 mg/dL (1.6-2.6); Phosphorus 2.4 mg/dL (2.3-4.7); Potassium 3.9 mmol/L (3.5-5.1); Protein, Total 7.1 g/dL (6.0-8.3); Sodium 133 mmol/L (136-145)
[2017-08-31 17:03] LABS: CKMB 2.6 ng/mL (0-6.6); Troponin I Less than 0.010 ng/mL (< 0.028)
[2017-08-31] MEDS ORDERED: Fentanyl 100 MCG/2 ML VIAL SLOW IVP SCH (18:15)
--- NOTE | 2017-08-31 18:27 | CT ---
CT HEAD WITHOUT AND WITHOUT CONTRAST WITH CT ANGIO OF HEAD PERFORMED ON POSTCONTRAST STUDY: 08/31/17 Multiple axial tomograms obtained through the head without IV enhancement. This is followed by multip le tomograms through the head with IV contrast in arterial phase following a cerebral angio protocol. HISTORY: Headache. Neck pain. Chest pain. Assess for carotid dissection. The noncontrast CT head shows normal appearing ventricles. Mild chronic ischemic white matter change. There is no hemorrhage, mass, or acute infarct identified. The sinuses and mastoids are aerated. IMPRESSION: Evidence of mild chronic ischemic white matter change. No acute abnormality. CT ANGIO OF HEAD: Intracranial internal carotid arteries are patent and symmetric. The anterior cerebral arteries unrem arkable. Middle cerebral arteries appear normal and symmetric. Basilar artery and posterior cerebral artery is unremarkable. No focal occlusion or stenosis identified. IMPRESSION: Unremarkable CT angio of head. CT ANGIO OF NECK: Multiple axial tomograms obtained through the neck with arterial phase of enhancement following angio protocol. Multiplanar reconstruction and 3D postprocessing. HISTORY: Headache. Left sided neck pain. Chest pain. Assess for carotid dissection. Mild atherosclerotic change seen at the origin of the arch vessels. Both common carotid arteries appe ar unremarkable. Carotid bifurcation is unremarkable bilaterally. No significant atherosclerotic hughes ge seen in either bulb. The internal carotid arteries are unremarkable with no stenosis or atheroscle rotic change. No evidence of carotid dissection. There is a dominant left vertebral. IMPRESSION: Unremarkable CT angio of neck. No evidence of carotid dissection. POS: [facility]
[2017-08-31 18:33] LABS: Bilirubin Negative (Negative); Blood, Urine Negative (Negative); Clarity CLEAR (Clear); Glucose, Urine (Dipstick) 100 mg/dL (Negative); Leukocyte Negative (Negative); Nitrite Negative (Negative); Protein, Urine (Dipstick) Negative (Neg-Trace)
[2017-08-31 18:40] LABS: Specific Gravity, Urine 1.045 (1.002-1.036)
[2017-08-31 18:43] LABS: Base Excess-Venous 1.1 mmol/L (0 (+/- 2.5)); Bicarbonate (HCO3v) 27.5 mmol/L (1.0-85.0); CO2 Tension (PvCO2) 49.2 mmHg (41.0-51.0); Hemoglobin - Calc 14.4 g/dL (12.0-18.0); O2 Tension (PvO2) 44.4 mmHg (35.0-45.0); Potassium 3.9 mmol/L (3.4-4.7); pH (Venous) 7.355 (7.35-7.45); vO2 Saturation-calc 77.4 % (94-98)
[2017-08-31] MEDS ORDERED: Fentanyl 250 MCG/5 ML VIAL ONE (18:54)
[2017-08-31 21:26] LABS: Troponin I Less than 0.010 ng/mL (< 0.028)
[2017-08-31 23:04] VITALS: BMI 29.0
[2017-08-31 23:47] LABS: Troponin I Less than 0.010 ng/mL (< 0.028)
[2017-09-01] MEDS ORDERED: Morphine 2 MG/ML SYRINGE SLOW IVP PRN (00:55)
[2017-09-01] MEDS ORDERED: Ondansetron HCl/PF 4 MG/2 ML Vial IVP PRN (00:56)
[2017-09-01] MEDS ORDERED: Acetaminophen 325 MG TAB PO PRN ×2 (00:56→04:53)
[2017-09-01] MEDS ORDERED: Dextrose 5% in Water 1,000 ML IV PRN ×2 (00:56→04:53)
[2017-09-01] MEDS ORDERED: Dextrose 50% Abboject 50 ML SYRINGE IVP PRN (00:56)
[2017-09-01] MEDS ORDERED: Ondansetron ODT 4 MG TAB SL PRN (00:56)
[2017-09-01] MEDS ORDERED: Insulin Regular 300 UNITS/3 ML VIAL SC PRN (00:56)
[2017-09-01] MEDS ORDERED: HumaLOG 300 UNITS/3 ML VIAL SC PRN ×2 (04:53)
[2017-09-01] MEDS ORDERED: Mag-Al 1200 mg/1200 mg/30 ML UDCUP PO PRN (04:53)
[2017-09-01] MEDS ORDERED: Cyclobenzaprine 10 MG TAB PO PRN (04:53)
[2017-09-01] MEDS ORDERED: Dextrose 50% Abboject 50 ML SYRINGE SLOW IVP PRN (04:53)
[2017-09-01] MEDS ORDERED: Guaifenesin DM 100-10/5 ML UDCUP PO PRN (04:53)
[2017-09-01] MEDS ORDERED: Nitroglycerin 0.4 MG TAB (25 Tab Bottle) PO PRN (04:53)
[2017-09-01] MEDS ORDERED: Senokot 8.6 MG TAB PO PRN (04:53)
[2017-09-01 05:50] LABS: Cardiac Risk 3.5 (Less than 4.5)
--- NOTE | 2017-09-01 06:00 | HP ---
REASON FOR ADMISSION: Atypical chest pain. HISTORY OF PRESENT ILLNESS: The patient gives history of having headaches in the left temporal and occipital area from the last two days. She has had neck pains radiating to her left chest and left upper extremity. These are sharp pains which come and go, last few seconds. She is also feeling numb in her fingertips on the left index and middle finger. No history of trauma to the neck. No prior history of disk disease in the cervical spine. No complaints of palpitations, PND, or orthopnea. No prior cardiac workup. 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 The patient states it is unlikely to be related to her work as far as she knows. PAST MEDICAL AND SURGICAL HISTORY: Diabetes mellitus type 2, dyslipidemia, COPD , peripheral neuropathy. No prior surgical history. CURRENT MEDICATIONS: Takes Novolin 70/30 of 25 units subcu twice daily, metformin 500 mg p.o. twice daily, gabapentin 300 mg p.o. twice daily, atorvastatin 10 mg p.o. daily. ALLERGIES: Allergic to LISINOPRIL. 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 Prior to which, she has smoked 2-3 cigarettes a day for 15-20 years, does not abuse alcohol or drugs. FAMILY HISTORY: Mother of unknown cancer, spreading to brain at the age of 55 years. Father in his 60s and has had history of lung cancer. REVIEW OF SYSTEMS: The following complete review of systems was negative, unless otherwise mentioned in the HPI or below: Constitutional: Weight loss or gain, ability to conduct usual activities. Skin: Rash, itching. Eyes: Double vision, pain. ENT/Mouth: Nose bleeding, neck stiffness, pain, tenderness. Cardiovascular: Palpitations, dyspnea on exertion, orthopnea. Respiratory: Shortness of breath, wheezing, cough, hemoptysis, fever or night sweats. Gastrointestinal: Poor appetite, abdominal pain, heartburn, nausea, vomiting, constipation, or diarrhea. Genitourinary: Urgency, frequency, dysuria, nocturia. Musculoskeletal: Pain, swelling. Neurologic/Psychiatric: Anxiety, depression. Allergy/Immunologic: Skin rash, bleeding tendency. PHYSICAL EXAMINATION: GENERAL: The patient is a 57-year-old female who is currently not in any acute distress, but has these sharp shooting pains that originated in the neck and radiate to her chest and left upper extremities as I speak to her. VITAL SIGNS: Blood pressure 114/76, pulse 84 per minute, respiratory rate 18 per minute, temperature 97.9 degrees Fahrenheit, saturating 94% on room air. NECK: Supple, no elevated JVD. HEENT: Eyes: Extraocular muscles intact. Pupils reacting to light. Oral cavity: Mucous membranes are moist. No exudates or congestion. CARDIOVASCULAR SYSTEM: S1, S2 heard. Regular rhythm. RESPIRATORY SYSTEM: Air entry 1+ bilateral. Scattered rhonchi plus no rales or wheezes. ABDOMEN: Soft, bowel sounds heard. No tenderness, rigidity or guarding. EXTREMITIES: No peripheral edema or calf tenderness. VASCULAR SYSTEM: Peripheral pulses 1+ bilateral, no ischemic ulcerations or gangrene. CENTRAL NERVOUS SYSTEM: No gross focal deficits seen. The patient is alert, awake, oriented well. PSYCHIATRIC SYSTEM: The patient's mood is euthymic. No hallucinations or delusions. LABORATORY DATA AND X-RAY FINDINGS: The patient has had CT angio of brain done , which showed unremarkable CT angio head. CT angio of the neck was unremarkable as well. Chest x-ray done showed no acute infiltrate. White count of 7, H and H 13 and 39, platelet count is 223 with 28% neutrophils and 64 % lymphocytes. PT, INR, PTT within normal limits. BUN 14, creatinine 0.8. Electrolytes stable. Serum glucose 302. CK level is 328, CK-MB 2.6. Troponin x2 is negative. Albumin is 3.4. CLINICAL IMPRESSION AND PLAN: The patient will be under observation on telemetry for atypical chest pain, likely her symptoms are due to cervical disk disease. 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 She will be on Motrin 600 mg 3 times daily along with Flexeril p.r.n. Also, continue Lipitor, aspirin, small dose of Lopressor and Neurontin. The patient is concerned about her heart and would like to want to have a stress test. We will follow ACS evidence based protocol. If her stress test is normal, she can be safely discharged this afternoon to follow up with her primary care physician in a week for further workup for her C-spine. For now, Motrin and Flexeril will be continued. We will also continue her Novolin insulin as before. Metformin will be held for now. TREY
[2017-09-01] MEDS: Insulin NPH/Reg Insulin Hm 300 UNITS/3 ML VIAL SC SCH ×2 (07:30→17:07)
[2017-09-01] MEDS ORDERED: Aspirin 325 MG TAB PO SCH (09:00)
[2017-09-01] MEDS ORDERED: Gabapentin 300 MG CAP PO SCH (09:00)
[2017-09-01] MEDS ORDERED: Metoprolol Tartrate 25 MG TAB PO SCH (09:00)
[2017-09-01] MEDS ORDERED: Enoxaparin Sodium 40 MG/0.4 ML SYRINGE SC SCH (09:00)
[2017-09-01] MEDS ORDERED: Famotidine 20 MG TAB PO SCH (09:00)
[2017-09-01] MEDS: Ibuprofen 600 MG TAB PO SCH ×2 (11:13→17:10)
[2017-09-01] MEDS ORDERED: Naproxen 500 MG TAB PO PRN (11:33)
--- NOTE | 2017-09-01 13:11 | NM ---
RADIONUCLIDE STRESS AND REST MYOCARDIAL PERFUSION SCAN WITH CT ATTENUATION CORRECTION AND SPECT IMAGI NG WITH LEFT VENTRICULAR WALL MOTION EVALUATION AND EJECTION FRACTION: HISTORY: chest pain FINDINGS: Lexiscan protocol used. There is homogeneous uptake of radiotracer throughout the left ventricular my ocardium without focal perfusion defect or reversibility. QGS analysis of gated SPECT images shows no focal wall motion abnormalities. Left ventricular ejection fraction is estimated at 76%. IMPRESSION: 1. Normal myocardial perfusion scan. 2. Normal LVEF. POS: [facility]
[2017-09-01] MEDS ORDERED: Regadenoson 0.4 MG/5 ML SYRINGE ONE (17:35)
[2017-09-01 17:38] VITALS: BP 124/70; TEMP 98.2
[2017-09-01] MEDS ORDERED: Atorvastatin Calcium 20 MG TAB PO SCH (21:00)
--- NOTE | 2017-09-02 15:27 | DIS ---
PRIMARY DISCHARGE DIAGNOSIS: Atypical chest pain, resolved, not secondary to acute coronary syndrome . BRIEF SUMMARY OF HOSPITAL COURSE: A 57-year-old female who presented with a chief complaint of chest pain. Please see the original history and physical for full details surrounding admission. The dif ferential at the time of admission seemed to include cardiac etiology for her chest pain. The patien t underwent a serial troponin evaluation which was unremarkable. The patient also underwent a cardia c stress test. Please see results below, but it was essentially negative. At the time of discharge, patient's discomfort is felt to be secondary to musculoskeletal etiology and the patient has been re commended for conservative medical management on an outpatient basis with close outpatient followup f or these issues. Remainder of the patient's chronic medical issues was stable during this hospitalization. MEDICATIONS: No changes to the patient's home medications. CONSULTATIONS: None. PATIENT'S CONDITION AT DISCHARGE: At the time of discharge, patient is hemodynamically stable. The patient was seen and examined on the day of discharge by myself. DISCHARGE INSTRUCTIONS: The patient has been asked to follow up with her outpatient team including h er primary care provider to particular regards to her musculoskeletal issues. Thank you for asking the care for the patient. Questions or concerns, contact me at [facility].
--- NOTE | 2017-09-06 14:00 | STRESS ---
Acquisition Time: 2017-09-01 09:32:01 Total Exercise Time: 00:01:00 Test Indications: CHEST PAIN Medications: Protocol: LEXISCAN Max HR: 116 BPM 71% of Pred: 162 BPM Max BP: 144/070 mmHG Max Work Load: 1.0 METS THE PATIENT WAS INJECTED WITH LEXISCAN. SHE DID NOT DEVELOP CHEST PAIN. THERE WAS NO SIGNIFICANT ST DEPRESSION. AWAIT NUCLEAR IMAGES FOR DEFINITIVE DIAGNOSIS. Confirmed by BIRGIT LOZANO ([id number]), photographic editor AIDEE BAUTISTA ([id number]) on 09/06/2017 1:59:38 PM Referred By: MD Navin ZALDIVAR Confirmed By:BIRGIT LOZANO
--- NOTE | 2017-09-06 15:06 | EKG ---
Test Reason : Blood Pressure : / mmHG Vent. Rate : 086 BPM Atrial Rate : 086 BPM P-R Int : 124 ms QRS Dur : 062 ms QT Int : 366 ms P-R-T Axes : 064 065 040 degrees QTc Int : 437 ms Normal sinus rhythm Possible Left atrial enlargement No STEMI Borderline ECG Confirmed by IVORY Ramírez, MATT ([id number]), editorial cartoonist RENETTA LEE ([id number]) on 09/06/2017 3:06:26 PM Referred By: Confirmed By:MATT DODSON M.D.
== END 2017-09-01 18:47 | disposition home or self-care (01) ==
LOC: ERS 16:01 → INTOOBSV 19:53 → 2NO 19:53
PROVIDERS: ADMIT Emergency Medicine; ATTEND Emergency Medicine
DX: R07.89 Other chest pain (principal); R51 Headache; M54.2 Cervicalgia; R20.0 Anesthesia of skin; E78.5 Hyperlipidemia, unspecified; J44.9 Chronic obstructive pulmonary disease, unspecified; E11.42 Type 2 diabetes mellitus with diabetic polyneuropathy; Z88.8 Allergy status to other drugs, medicaments and biological substances; Z79.4 Long term (current) use of insulin; Z79.899 Other long term (current) drug therapy; Z87.891 Personal history of nicotine dependence
CPT/HCPCS: 36415; 36416; 70496; 70498; 71045; 78452; 80053; 80061; 81003; 82010; 82330; 82553; 82803; 83690; 83735; 84100; 84484; 85025; 85610; 85730; 93005; 93017; 94760; 96372; 96374; A9500; G0378; J1650; J2785; J3010

== ENCOUNTER 2018-02-07 14:21 | Inpatient (IN) | payer OTHER, SELFPAY ==
[~2018-02-07 14:21] MED LIST changes: -ISOVUE-370 76%-LOCM 1 ML ONE; +Iopamidol 370 76% 100 ML VIAL ONE; +Iopamidol 370 76% 50 ML VIAL FS ONE
[2018-02-07] MEDS ORDERED: Atropine Sulfate 1 mg/1 ml Vial ONE (15:01)
[2018-02-07 15:12] LABS: Bilirubin Negative (Negative); Blood, Urine Negative (Negative); Clarity CLEAR (Clear); Glucose, Urine (Dipstick) >=1000 mg/dL (Negative); Leukocyte Negative (Negative); Nitrite Negative (Negative); Protein, Urine (Dipstick) Negative (Neg-Trace); Specific Gravity, Urine 1.023 (1.002-1.036)
[2018-02-07] MEDS ORDERED: Heparin 10,000 UNITS/1 ML VIAL ONE (15:12)
[2018-02-07 15:18] LABS: #Basophils 0.1 thou/uL (0.0-0.2); #Eosinphils 0.1 thou/uL (0.0-0.7); #Lymphocytes 2.1 thou/uL (1.20-3.40); #Monocytes 0.4 thou/uL (0.11-0.59); #Neutrophils 5.3 thou/uL (1.40-6.50); %Basophils 0.8 % (0.0-1.0); %Eosinophils 0.6 % (0.0-10.0); %Monocytes 5.4 % (0.0-10.0); %Neutrophils 67.1 % (42.0-75.0); Hemoglobin 12.2 g/dL (12.0-16.0); Mean Corpuscular HGB CONC 34.4 g/dL (32.0-36.0); Mean Corpuscular Volume 93.2 fL (78.0-98.0); Mean Platelet Volume 8.3 fL (7.4-10.4); Platelet Count 205 thou/uL (130-400); RBC Distribution Width 11.9 % (11.5-14.5); White Blood Cell (WBC) Count 7.9 thou/uL (4.8-10.8)
[2018-02-07 15:21] LABS: Amphetamine Not Detected (NotDetected); Barbiturates Screen Not Detected (NotDetected); Benzodiazepine Screen Not Detected (NotDetected); Cocaine Metabolite Screen Not Detected (NotDetected); Medtox Control Line Valid? VALID (VALID); Medtox Reader # READER 1; Methadone Not Detected (NotDetected); Methamphetamine Not Detected (NotDetected); Opiate Screen Not Detected (NotDetected); Oxycodone Screen Not Detected (NotDetected); Phencyclidine (PCP) Not Detected (NotDetected); THC/Cannabinoid Screen Detected (NotDetected); Tricyclic Screen Not Detected (NotDetected)
[2018-02-07 15:24] LABS: Prothrombin Time 13.1 SEC (12.0-14.7)
[2018-02-07 15:25] LABS: PTT 33.4 SEC (22.9-36.1)
[2018-02-07 15:27] LABS: D-Dimer Test Less than 0.27 *mcg/mL (0.27-0.43)
[2018-02-07] MEDS ORDERED: Adenosine 6 MG/2 ML VIAL ONE (15:29)
[2018-02-07] MEDS ORDERED: Verapamil 5 MG/2 ML VIAL ONE (15:29)
[2018-02-07 15:31] LABS: ALT (SGPT) 26 U/L (8-55); AST (SGOT) 19 U/L (5-34); Alkaline Phosphatase 202 U/L (40-150); Anion Gap 13 mmol/L (10-20); BUN (Urea Nitrogen) 12 mg/dL (9.8-20.1); Bilirubin, Total 0.4 mg/dL (0.2-1.2); CK (CPK) 69 U/L (29-168); Calc. Creatinine Clearance 0 mL/min (70-130); Calcium 7.8 mg/dL (7.8-10.44); Carbon Dioxide 19 mmol/L (22-29); Chloride 110 mmol/L (98-107); Estimated GFR-MDRD Greater than 90; Globulin 2.7 g/dL (2.4-3.5); Glucose 331 mg/dL (70-105); Potassium 3.7 mmol/L (3.5-5.1); Protein, Total 5.7 g/dL (6.0-8.3); Sodium 138 mmol/L (136-145)
[2018-02-07] MEDS ORDERED: Zolpidem Tartrate 5 MG TAB PO PRN (15:35)
[2018-02-07] MEDS ORDERED: traMADol HCl 50 MG TAB PO PRN (15:35)
[2018-02-07] MEDS ORDERED: Milk Of Magnesia 30 ML UDCUP PO PRN (15:35)
[2018-02-07] MEDS ORDERED: cloNIDine 0.1 MG TAB PO PRN (15:35)
[2018-02-07] MEDS ORDERED: Acetaminophen/Codeine 30-300mg Tablet PO PRN (15:35)
--- NOTE | 2018-02-07 15:35 | CT ---
CT HEAD NONCONTRAST: History: Altered mental status. Comparison: 08-31-17 FINDINGS: There is no evidence of acute intracranial hemorrhage or infarct. Scattered areas of chronic ischemic small vessel disease and old lacunar infarcts have progressed since the prior exam. There is no mass effect or shift of midline structures. Visualized paranasal sinuses remain well aerated. IMPRESSION: Progression of chronic small vessel disease. No acute intracranial abnormalities are demonstrate don noncontrast CT head. POS: [facility]
[2018-02-07 15:36] LABS: CKMB 2.3 ng/mL (0-6.6); Troponin I Less than 0.010 ng/mL (< 0.028)
[2018-02-07] MEDS ORDERED: Nitroglycerin 100MG/250ML BOT 250 ML ONE (15:40)
[2018-02-07] MEDS ORDERED: Sodium Chloride 0.9% 1,000 ML IV SCH (15:45)
[2018-02-07] MEDS ORDERED: traMADol HCl 50 MG TAB ONE (17:40)
[2018-02-07 19:53] VITALS: BMI 33.4
[2018-02-07] MEDS ORDERED: Dextrose 5% in Water 1,000 ML IV PRN (21:27)
[2018-02-07] MEDS ORDERED: Dextrose 50% Abboject 50 ML SYRINGE IVP PRN (21:27)
[2018-02-07] MEDS: Insulin Regular 300 UNITS/3 ML VIAL SC PRN (22:06)
[2018-02-08 05:49] LABS: ALT (SGPT) 27 U/L (8-55); AST (SGOT) 47 U/L (5-34); Alkaline Phosphatase 164 U/L (40-150); Anion Gap 14 mmol/L (10-20); BUN (Urea Nitrogen) 11 mg/dL (9.8-20.1); Bilirubin, Total 0.5 mg/dL (0.2-1.2); Calc. Creatinine Clearance 106 mL/min (70-130); Calcium 8.6 mg/dL (7.8-10.44); Carbon Dioxide 19 mmol/L (22-29); Chloride 107 mmol/L (98-107); Estimated GFR-MDRD Greater than 90; Globulin 3.6 g/dL (2.4-3.5); Glucose 200 mg/dL (70-105); Potassium 3.8 mmol/L (3.5-5.1); Protein, Total 6.6 g/dL (6.0-8.3); Sodium 136 mmol/L (136-145)
[2018-02-08 05:51] LABS: Hemoglobin 12.3 g/dL (12.0-16.0); Lymphocytes 29 % (21-51); MDiff Complete? YES; Mean Corpuscular Hemoglobin 30.1 pg (27.0-31.0); Mean Corpuscular Volume 93.8 fL (78.0-98.0); Mean Platelet Volume 8.6 fL (7.4-10.4); Monocytes 3 % (0-10); Neutrophil 67 % (42-75); Platelet Count 188 thou/uL (130-400); RBC Distribution Width 11.9 % (11.5-14.5); Reactive Lymphocytes 1 % (0-10); White Blood Cell (WBC) Count 9.5 thou/uL (4.8-10.8)
--- NOTE | 2018-02-08 06:39 | PDOC.CTH ---
Cardiology Progress Note - Subjective Doing well overall - Objective Vital Signs Temp Pulse Resp Pulse Ox 02/08/18 03:00 97.7 F 02/07/18 23:00 98 F 02/07/18 20:00 98.1 F 65 23 H 96 Weight 171 lb 1.259 oz 02/06/18 02/07/18 02/08/18 06:59 06:59 06:59 Intake Total 1516 Output Total 1550 Balance -34 - Physical Examination General/Neuro: alert & oriented x3 Neck: carotid US brisk Lungs: unlabored respirations Heart: RRR Abdomen: NT/ND, soft Extremities: + femoral B - Labs Result Diagrams: 02/08/18 05:02 02/08/18 05:02 Troponin/CKMB CK-MB (CK-2) 2.3 ng/mL (0-6.6) 02/07/18 15:07 Troponin I Less than 0.010 ng/mL (< 0.028) 02/07/18 15:07 - Assessment/Plan AMI DM tobacco abuse Doing well Trnasfer to tele Counseled on tobacco use Consult cogent for DM
[2018-02-08] MEDS: Insulin Regular 300 UNITS/3 ML VIAL SC PRN ×2 (07:04→12:14)
[2018-02-08 07:43] LABS: CKMB 33.7 ng/mL (0-6.6); Troponin I 23.258 ng/mL (< 0.028)
[2018-02-08] MEDS: Clopidogrel Bisulfate 75 MG TAB PO SCH (08:20)
--- NOTE | 2018-02-08 14:01 | PDOC.PN ---
- Subjective Encounter Start Date: 02/08/18 Encounter Start Time: 13:59 Pt seen for management of medical comorbidities, including diabetes mellitus. Denies chest pain. Generalized weakness is better. No nausea or vomiting. - Objective MAR Reviewed: Yes Vital Signs & Weight: Vital Signs (12 hours) Temp Pulse Pulse Pulse Resp BP BP 02/08/18 10:13 92 73 126/76 107/77 02/08/18 08:00 98.0 F 74 20 02/08/18 03:00 97.7 F Pulse Ox Pulse Ox Pulse Ox 02/08/18 10:13 97 95 02/08/18 08:00 95 02/08/18 03:00 Weight Weight 171 lb 1.259 oz Most Recent Monitor Data Heart Rate from ECG 78 NIBP 114/60 NIBP BP-Mean 81 Respiration from ECG 22 SpO2 94 I&O: 02/07/18 02/08/18 02/09/18 06:59 06:59 06:59 Intake Total 1516 720 Output Total 1550 1175 Balance -34 -455 Result Diagrams: 02/08/18 05:02 02/08/18 05:02 Additional Labs: Accuchecks 02/07/18 22:00 POC Glucose 211 H EKG Reviewed by me: Yes (Tele: NSR) Phys Exam - Physical Examination Constitutional: NAD HEENT: moist MMs Neck: supple Respiratory: clear to auscultation bilateral Cardiovascular: RRR Gastrointestinal: soft Neurological: moves all 4 limbs Psychiatric: normal affect Dx/Plan (1) DM2 (diabetes mellitus, type 2) Status: Chronic Comment: start accuchecks, insulin sliding scale (2) COPD (chronic obstructive pulmonary disease) Status: Chronic Comment: stable (3) CAD (coronary artery disease) Code(s): I25.10 - ATHSCL HEART DISEASE OF [place] CORONARY ARTERY W/O ANG PCTRS Status: Chronic Comment: s/p PCI with stent - Plan * . Review of Systems - Review of Systems Respiratory: negative: Cough, Shortness of Breath, SOB with Excertion, Pleuritic Pain, Wheezing Cardiovascular: negative: chest pain, palpitations, orthopnea, paroxysmal nocturnal dyspnea, edema, light headedness - Medications/Allergies Allergies/Adverse Reactions: Allergies Allergy/AdvReac Type Severity Reaction Status Date / Time lisinopril Allergy Swollen Verified 02/07/18 21:55 Lips Medications: Current Medications Acetaminophen/Codeine Phosphate (Tylenol #3) 1 tab PO Q4H PRN PRN Reason: Mild Pain (1-3) Clonidine (Catapres) 0.1 mg PO Q2H PRN PRN Reason: SBP GREATER THAN 160 Clopidogrel Bisulfate (Plavix) 75 mg PO DAILY JAX Last Admin: 02/08/18 08:20 Dose: 75 mg Dextrose/Water (Dextrose 50%) 25 gm IVP PRN PRN PRN Reason: HYPOGLYCEMIA PROTOCOL Glucagon (Glucagon) 1 mg IM PRN PRN PRN Reason: HYPOGLYCEMIA PROTOCOL Dextrose/Water (D5w) 1,000 mls @ 0 mls/hr IV INF PRN PRN Reason: HYPOGLYCEMIA PROTOCOL Insulin Human Regular (Humulin R) 0 units SC .MILD SLIDING PRN; Protocol PRN Reason: MILD SLIDING SCALE Last Admin: 02/08/18 12:14 Dose: 6 unit Magnesium Hydroxide (Milk Of Magnesium) 30 ml PO Q12H PRN PRN Reason: Constipation Tramadol HCl (Ultram) 50 mg PO Q6H PRN PRN Reason: Pain Zolpidem Tartrate (Ambien) 5 mg PO HSPRN PRN PRN Reason: Insomnia
[2018-02-08] MEDS ORDERED: Dextrose 50% Abboject 50 ML SYRINGE SLOW IVP PRN (14:04)
[2018-02-08] MEDS ORDERED: Dextrose 5% in Water 1,000 ML IV PRN (14:04)
[2018-02-08] MEDS: HumaLOG 300 UNITS/3 ML VIAL SC PRN ×2 (15:55→21:22)
[2018-02-08] MEDS: Ipratropium Bromide 2.5 ml Neb NEB SCH (19:36)
[2018-02-08] MEDS ORDERED: Non-Formulary Item 1 EACH (Insulin Detemir [Levemir] 25 UNIT) SQ SCH (21:00)
[2018-02-08] MEDS: Insulin Glargine 25 UNITS in Pre-Filled Syringe 1 EACH SC SCH (21:24)
[2018-02-09] MEDS: Ipratropium Bromide 2.5 ml Neb NEB SCH ×4 (01:20→18:35)
[2018-02-09] MEDS: Clopidogrel Bisulfate 75 MG TAB PO SCH (08:10)
[2018-02-09] MEDS: Insulin Glargine 25 UNITS in Pre-Filled Syringe 1 EACH SC SCH ×2 (08:11→20:49)
[2018-02-09] MEDS: HumaLOG 300 UNITS/3 ML VIAL SC PRN ×3 (08:12→17:12)
[2018-02-09] MEDS ORDERED: Carvedilol 3.125 MG TAB PO SCH (09:45)
--- NOTE | 2018-02-09 12:32 | PDOC.CTH ---
Cardiology Progress Note - Subjective Doing well. Overall BS have been erratic. Started on corge this am - Objective Vital Signs Temp Pulse Pulse Pulse Resp BP BP 02/09/18 11:20 98.3 F 74 18 02/09/18 10:01 70 73 127/64 105/63 02/09/18 07:15 98.4 F 78 18 02/09/18 06:36 02/09/18 06:34 80 16 02/09/18 03:50 98.8 F 81 21 H 02/09/18 01:20 80 18 BP Pulse Ox Pulse Ox Pulse Ox 02/09/18 11:20 109/75 100 02/09/18 10:01 99 94 L 02/09/18 07:15 115/58 L 97 02/09/18 06:36 98 02/09/18 06:34 98 02/09/18 03:50 119/71 95 02/09/18 01:20 100 Weight 160 lb 6.4 oz 02/08/18 02/09/18 02/10/18 06:59 06:59 06:59 Intake Total 1516 1440 Output Total 1550 1175 Balance -34 265 - Physical Examination General/Neuro: alert & oriented x3, NAD Neck: carotid US brisk, no JVD present Lungs: CTA, unlabored respirations Heart: PMI normal, RRR Abdomen: NT/ND, soft Extremities: + femoral B - Labs Result Diagrams: 02/08/18 05:02 02/08/18 05:02 Troponin/CKMB CK-MB (CK-2) 33.7 ng/mL (0-6.6) H* 02/08/18 05:02 Troponin I 23.258 ng/mL (< 0.028) H* 02/08/18 05:02 - Assessment/Plan AMI DM Toba buse S/p stnt to RCA BMS present Add coreg DM control per [facility] in am
[2018-02-09] MEDS ORDERED: Aspirin 325 MG TAB PO SCH (13:30)
[2018-02-09] MEDS ORDERED: Dextrose 5% in Water 1,000 ML IV PRN (13:50)
[2018-02-09] MEDS ORDERED: HumaLOG 300 UNITS/3 ML VIAL SC PRN (13:50)
[2018-02-09] MEDS ORDERED: Dextrose 50% Abboject 50 ML SYRINGE SLOW IVP PRN (13:50)
--- NOTE | 2018-02-09 13:52 | PDOC.PN ---
- Subjective Encounter Start Date: 02/09/18 Encounter Start Time: 13:50 Subjective: no pain or sob - Objective MAR Reviewed: Yes Vital Signs & Weight: Vital Signs (12 hours) Temp Pulse Pulse Pulse Resp BP BP 02/09/18 12:57 84 16 02/09/18 11:20 98.3 F 74 18 02/09/18 10:01 70 73 127/64 105/63 02/09/18 07:15 98.4 F 78 18 02/09/18 06:36 02/09/18 06:34 80 16 02/09/18 03:50 98.8 F 81 21 H BP Pulse Ox Pulse Ox Pulse Ox 02/09/18 12:57 98 02/09/18 11:20 109/75 100 02/09/18 10:01 99 94 L 02/09/18 07:15 115/58 L 97 02/09/18 06:36 98 02/09/18 06:34 98 02/09/18 03:50 119/71 95 Weight Weight 160 lb 6.4 oz Most Recent Monitor Data Heart Rate from ECG 63 NIBP 107/57 NIBP BP-Mean 71 Respiration from ECG 28 SpO2 94 I&O: 02/08/18 02/09/18 02/10/18 06:59 06:59 06:59 Intake Total 1516 1440 Output Total 1550 1175 Balance -34 265 Result Diagrams: 02/08/18 05:02 02/08/18 05:02 Additional Labs: Accuchecks 02/09/18 02/09/18 02/08/18 11:06 05:34 21:13 POC Glucose 201 H 215 H 430 H 02/08/18 02/08/18 02/08/18 20:56 17:44 15:46 POC Glucose 424 H 66 L 221 H Phys Exam - Physical Examination Neck: no JVD Respiratory: clear to auscultation bilateral Cardiovascular: RRR, no significant murmur Gastrointestinal: soft, positive bowel sounds Musculoskeletal: edema present Dx/Plan (1) Acute inferior myocardial infarction Status: Acute (2) CAD (coronary artery disease) Code(s): I25.10 - ATHSCL HEART DISEASE OF [place] CORONARY ARTERY W/O ANG PCTRS Status: Chronic Qualifiers: Coronary Disease-Associated Artery/Lesion type: [place] artery [place] vs. transplanted heart: [place] heart Comment: s/p PCI with stent (3) DM2 (diabetes mellitus, type 2) Status: Chronic Qualifiers: Diabetes mellitus jail insulin use: with jail use Diabetes mellitus complication status: without complication Qualified Code(s): E11.9 - Type 2 diabetes mellitus without complications; Z79.4 - intermediate designer (current) use of insulin Comment: start accuchecks, insulin sliding scale (4) COPD (chronic obstructive pulmonary disease) Status: Chronic Qualifiers: Emphysema type: unspecified Comment: stable - Plan cont ASA, plavix, coreg -: cont levemir, accu/s( uses this at home) * .
[2018-02-09] MEDS: Carvedilol 3.125 MG TAB PO SCH (17:12)
[2018-02-09] MEDS ORDERED: Ibuprofen 200 MG TAB PO PRN (17:54)
[2018-02-10] MEDS: Ipratropium Bromide 2.5 ml Neb NEB SCH ×2 (00:46→06:18)
[2018-02-10 07:48] VITALS: BP 121/59; TEMP 98.7
--- NOTE | 2018-02-10 08:37 | DIS ---
DATE OF ADMISSION: 02/07/2018 DATE OF DISCHARGE: 02/10/2018 DISCHARGE DIAGNOSIS: Acute myocardial infarction. HOSPITAL COURSE: Ms. Romeo is a very pleasant 57-year-old woman who recently presented with acute m yocardial infarction. She had a complete occlusion of the right coronary artery. There was difficul ty on access of the right coronary artery due to calcium and positioning. After appropriate engageme nt a stent was placed successfully. The patient did well during her hospitalization. She was placed in the ICU overnight. She was place d on telemetry monitoring. [facility] was consulted for diabetes management. No recurrent chest pain or pressure present. DISCHARGE MEDICATIONS: Aspirin 81 q.a.m., carvedilol 1.5625 mg b.i.d., Plavix 75 q.a.m., insulin det vangie and insulin NPH/regular insulin p.r.n. CONDITION AT DISCHARGE: Stable.
--- NOTE | 2018-02-10 08:45 | CON ---
DATE OF CONSULTATION: 02/07/2018 CHIEF COMPLAINT: Acute myocardial infarction. HISTORY OF PRESENT ILLNESS: Ms. Romeo is a very pleasant 57-year-old woman, who recently presented with acute onset chest pain, less than 1 hour prior to arriving. She called EMS. Most of the histor y is obtained from her daughter. There were some mental status issues. Ms. Romeo would not answer questions appropriately. There was concern for mental status changes. According to EMS, this was fe lt to be a new finding. This was not noted prior to arrival to her home. PAST MEDICAL HISTORY: Tobacco abuse and diabetes mellitus. ALLERGIES: LISINOPRIL. SOCIAL HISTORY: As above. REVIEW OF SYSTEMS: Ten-point review of systems is difficult to obtain. PHYSICAL EXAMINATION: VITAL SIGNS: Blood pressure 120/70, pulse 80, respirations 20. GENERAL: She is currently having active pain, but not oriented to time, person, or place. NEUROLOGIC: The patient is alert and oriented times 3 with no focal neurologic deficits. HEENT: Sclerae without icterus. Mouth has moist mucous membranes with normal pallor. NECK: No JVD. Carotid upstroke brisk. No bruits bilaterally. LUNGS: Clear to auscultation with unlabored respirations. BACK: No scoliosis or kyphosis. CARDIAC: Regular rate and rhythm with normal S1 and S2. No S3 or S4 noted. No significant rubs, mu rmurs, thrills, or gallops noted throughout the precordium. PMI is not displaced. There is no kandace ternal heave. ABDOMEN: Soft, nontender, nondistended. No peritoneal signs present. No hepatosplenomegaly. No ab normal striae. EXTREMITIES: 2+ femoral and 2+ dorsalis pedis pulses. No cyanosis, clubbing, or edema. SKIN: No gross abnormalities. LABORATORY AND X-RAY FINDINGS: 1. CT scan of the head, no significant intracranial bleeding. 2. EKG sinus rhythm with ST-T-wave changes suggesting inferior elevation, although appears more conc ave versus convex with no reciprocal changes. When compared to previous EKG, these findings appear n ew. IMPRESSION: Acute myocardial infarction. RECOMMENDATIONS: I am concerned about Ms. Romeo's recent change in EKG. This is not truly consiste nt with acute VA given the findings noted above. At this point, given that she is continuing to have active pain with a history of diabetes and tobacco abuse, we recommend coronary angiography plus PCI . I discussed the procedure in full detail with Ms. Romeo in addition with her daughter. The risks include but are not limited to the following: , stroke, VA, need for emergency surgery, loss o f limb, bleeding, and infection, as well as a reaction to the dye causing kidney failure and needing long-term dialysis. I also discussed the risks of PCI to include all of the above including coronary dissection and perforation in addition to acute stent thrombosis and restenosis. All questions abou t the procedure were answered. Given the above, the patient agreed to proceed with coronary angiogra phy and possible PCI. Further recommendations pending the above.
[2018-02-10] MEDS: Clopidogrel Bisulfate 75 MG TAB PO SCH (08:47)
[2018-02-10] MEDS: Carvedilol 3.125 MG TAB PO SCH (08:47)
[2018-02-10] MEDS: Insulin Glargine 25 UNITS in Pre-Filled Syringe 1 EACH SC SCH (08:48)
[2018-02-10] MEDS ORDERED: Aspirin 325 MG TAB PO SCH (09:00)
--- NOTE | 2018-02-10 15:06 | EKG ---
Test Reason : Blood Pressure : / mmHG Vent. Rate : 071 BPM Atrial Rate : 071 BPM P-R Int : 130 ms QRS Dur : 072 ms QT Int : 386 ms P-R-T Axes : 009 056 049 degrees QTc Int : 419 ms Normal sinus rhythm Normal ECG When compared with ECG of 31-AUG-2017 16:14, No significant change was found Confirmed by KYLE BIRD MD ([id number]) on 02/10/2018 3:05:48 PM Referred By: MARGE Confirmed By:KYLE BIRD MD
--- NOTE | 2018-02-10 15:07 | EKG ---
Test Reason : Blood Pressure : / mmHG Vent. Rate : 068 BPM Atrial Rate : 068 BPM P-R Int : 120 ms QRS Dur : 068 ms QT Int : 390 ms P-R-T Axes : 077 059 004 degrees QTc Int : 414 ms Normal sinus rhythm Normal ECG When compared with ECG of 07-FEB-2018 17:55, (Unconfirmed) Non-specific change in ST segment in Inferior leads Nonspecific T wave abnormality now evident in Inferior leads Confirmed by KYLE BIRD MD ([id number]) on 02/10/2018 3:06:58 PM Referred By: MARGE Confirmed By:KYLE BIRD MD
== END 2018-02-10 11:03 | disposition home or self-care (01) | DRG 247 ==
LOC: ERS 14:21 → 2NO 14:43 → CCL 14:43 → CCU 19:30 → 2NO 02-08 17:12
PROVIDERS: ADMIT Internal Medicine Cardiovascular Disease; ATTEND Internal Medicine Cardiovascular Disease
PROC: 027034Z Dilation of Coronary Artery, One Artery with Drug-eluting Intraluminal Device, Percutaneous Approach (ICD-10-PCS; principal; 2018-02-07)
PROC: 4A023N7 Measurement of Cardiac Sampling and Pressure, Left Heart, Percutaneous Approach (ICD-10-PCS; 2018-02-07)
PROC: B2111ZZ Fluoroscopy of Multiple Coronary Arteries using Low Osmolar Contrast (ICD-10-PCS; 2018-02-07)
PROC: B2151ZZ Fluoroscopy of Left Heart using Low Osmolar Contrast (ICD-10-PCS; 2018-02-07)
DX: I21.19 ST elevation (STEMI) myocardial infarction involving other coronary artery of inferior wall (principal); I25.10 Atherosclerotic heart disease of native coronary artery without angina pectoris; F17.210 Nicotine dependence, cigarettes, uncomplicated; E11.9 Type 2 diabetes mellitus without complications; J44.9 Chronic obstructive pulmonary disease, unspecified; Z79.4 Long term (current) use of insulin
CPT/HCPCS: 36415; 36416; 70450; 76942; 80053; 80306; 81003; 82553; 84484; 85025; 85347; 85379; 85610; 85730; 86850; 86900; 86901; 90471; 90732; 92928; 93005; 93010; 93458; 93798; 94760; 96360; A4353; C1725; C1769; C1876; C1887; G0009; J0153; J0461; J1644; J1815; J7644

== ENCOUNTER 2018-02-17 17:28 | Emergency (ER) | payer SELFPAY ==
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
== END 2018-02-17 19:25 | disposition home or self-care (01) ==
LOC: ERS 17:28
DX: Z04.1 Encounter for examination and observation following transport accident (principal); E11.40 Type 2 diabetes mellitus with diabetic neuropathy, unspecified; I25.2 Old myocardial infarction; J44.9 Chronic obstructive pulmonary disease, unspecified; Z87.891 Personal history of nicotine dependence; Z79.4 Long term (current) use of insulin; Z79.899 Other long term (current) drug therapy; V89.2XXA Person injured in unspecified motor-vehicle accident, traffic, initial encounter
CPT/HCPCS: 71046; 93005

== ENCOUNTER 2019-03-01 10:34 | Emergency (ER) | payer SELFPAY ==
[2019-03-01] MEDS ORDERED: Ketorolac Tromethamine 30 MG/ML VIAL ONE (11:06)
[2019-03-01] MEDS ORDERED: traMADol HCl 50 MG TAB ONE (11:06)
--- NOTE | 2019-03-01 11:37 | RAD ---
XR Shoulder Lt 3 View STANDARD HISTORY: Left shoulder pain status post fall. COMPARISON: None. FINDINGS: Mild arthrosis of the AC joint is seen. Also some arthritic changes of the glenohumeral jessica nt space. There are no signs of fracture or dislocation. IMPRESSION: No acute injury.
== END 2019-03-01 12:20 | disposition home or self-care (01) ==
LOC: ERS 10:34
DX: S43.402A Unspecified sprain of left shoulder joint, initial encounter (principal); Z76.0 Encounter for issue of repeat prescription; E11.40 Type 2 diabetes mellitus with diabetic neuropathy, unspecified; J44.9 Chronic obstructive pulmonary disease, unspecified; I25.2 Old myocardial infarction; Z87.891 Personal history of nicotine dependence; Z79.899 Other long term (current) drug therapy; Z79.82 Long term (current) use of aspirin; Z79.4 Long term (current) use of insulin; W18.30XA Fall on same level, unspecified, initial encounter
CPT/HCPCS: 36416; 96374; J1885

== ENCOUNTER 2020-11-15 18:33 | Observation (INO) | payer SELFPAY ==
[2020-11-15 19:27] LABS: Hemoglobin 14.2 g/dL (12.0-16.0); Mean Corpuscular HGB CONC 32.7 g/dL (32.0-36.0); Mean Corpuscular Hemoglobin 30.6 pg (27.0-31.0); Mean Corpuscular Volume 93.6 fL (78.0-98.0); Mean Platelet Volume 8.8 fL (7.4-10.4); Platelet Count 235 thou/uL (130-400); RBC Distribution Width 12.7 % (11.5-14.5); Red Blood Cell (RBC) Count 4.63 mill/uL (4.20-5.40); White Blood Cell (WBC) Count 10.2 thou/uL (4.8-10.8)
[2020-11-15 19:41] LABS: Band 2 % (5-11); Eosinophils 2 % (0-10); Lymphocytes 40 % (21-51); MDiff Complete? YES; Monocytes 7 % (0-10); Neutrophil 49 % (42-75); Platelet Morphology Comment Appears Adequate; RBC Morphology Normal
[2020-11-15 19:44] LABS: ALT (SGPT) 23 U/L (8-55); AST (SGOT) 22 U/L (5-34); Albumin 3.7 g/dL (3.4-4.8); Alkaline Phosphatase 190 U/L (40-110); Anion Gap 16 mmol/L (10-20); BUN (Urea Nitrogen) 10 mg/dL (9.8-20.1); Bilirubin, Total 0.5 mg/dL (0.2-1.2); Calc. Creatinine Clearance 0 mL/min (70-130); Calcium 9.2 mg/dL (7.8-10.44); Carbon Dioxide 21 mmol/L (23-31); Chloride 103 mmol/L (98-107); Globulin 4.1 g/dL (2.4-3.5); Glucose 224 mg/dL (80-115); Potassium 4.1 mmol/L (3.5-5.1); Protein, Total 7.8 g/dL (5.8-8.1); Sodium 136 mmol/L (136-145)
[2020-11-15 19:57] LABS: SARS-CoV-2 NAA Rapid Test Not Detected (NotDetected)
[2020-11-15 22:01] LABS: Bilirubin Negative (Negative); Blood, Urine Negative (Negative); Clarity Clear (Clear); Glucose, Urine (Dipstick) Normal (Negative); Ketone, Urine Trace mg/dL (Negative); Leukocyte Negative Leu/uL (Negative); Nitrite Negative (Negative); Protein, Urine (Dipstick) 20 mg/dL (Neg-Trace); Specific Gravity, Urine 1.026 (1.002-1.036); pH, Urine 5.5 (5.0-9.0)
[2020-11-15 23:08] LABS: Troponin I Less than 0.010 ng/mL (< 0.028)
[2020-11-15] MEDS ORDERED: Guaifenesin DM 100-10/5 ML UDCUP PO PRN (23:15)
[2020-11-15 23:26] VITALS: BMI 28.0
[2020-11-16] MEDS ORDERED: HumaLOG 300 UNITS/3 ML VIAL SC PRN ×2 (01:51)
[2020-11-16] MEDS ORDERED: Dextrose 5% in Water 1,000 ML IV PRN (01:51)
[2020-11-16] MEDS ORDERED: Dextrose 50% Abboject 50 ML SYRINGE SLOW IVP PRN (01:51)
[2020-11-16] MEDS ORDERED: Morphine 2 MG/ML VIAL SLOW IVP PRN (02:08)
[2020-11-16] MEDS ORDERED: Nitroglycerin 0.4 MG TAB (25 Tab Bottle) SL PRN (02:08)
[2020-11-16 05:18] LABS: Hemoglobin A1c 10.9 % (4.0-6.0)
[2020-11-16 05:36] LABS: Cardiac Risk 3.8 (Less than 4.5)
[2020-11-16 05:37] LABS: Troponin I Less than 0.010 ng/mL (< 0.028)
[2020-11-16] MEDS ORDERED: Carvedilol 3.125 MG TAB PO SCH (08:00)
[2020-11-16] MEDS ORDERED: Atorvastatin Calcium 20 MG TAB PO SCH (09:00)
[2020-11-16] MEDS ORDERED: Clopidogrel Bisulfate 75 MG TAB PO SCH (09:00)
[2020-11-16] MEDS ORDERED: Gabapentin 300 MG CAP PO SCH (09:00)
[2020-11-16] MEDS ORDERED: Regadenoson 0.4 MG/5 ML SYRINGE ONE (09:27)
[2020-11-16 12:42] VITALS: BP 142/81; TEMP 98.4
== END 2020-11-16 14:45 | disposition home or self-care (01) ==
LOC: ERS 18:33 → 2SW 21:32
PROVIDERS: ADMIT Internal Medicine; ATTEND Internal Medicine
DX: R07.89 Other chest pain (principal); J20.9 Acute bronchitis, unspecified; I25.10 Atherosclerotic heart disease of native coronary artery without angina pectoris; E11.40 Type 2 diabetes mellitus with diabetic neuropathy, unspecified; J44.9 Chronic obstructive pulmonary disease, unspecified; I25.2 Old myocardial infarction; E78.00 Pure hypercholesterolemia, unspecified; Z20.822 Contact with and (suspected) exposure to COVID-19; Z79.4 Long term (current) use of insulin; Z79.82 Long term (current) use of aspirin; Z79.899 Other long term (current) drug therapy; Z87.891 Personal history of nicotine dependence; Z88.8 Allergy status to other drugs, medicaments and biological substances; Z95.5 Presence of coronary angioplasty implant and graft
CPT/HCPCS: 0240U; 36415; 36416; 71045; 71275; 78452; 80053; 80061; 81003; 83036; 83880; 84484; 85025; 87070; 87077; 87186; 87205; 87633; 93005; 93017; 93306; A9500; G0378; J2785

== ENCOUNTER 2023-01-13 12:27 | Outpatient (CLI) | payer OTHER | END 2023-01-13 12:28 | disposition home or self-care (01) | LOC: BICMAMMO 12:27 | PROVIDERS: ATTEND Nurse Practitioner Family | DX: Z12.31 Encounter for screening mammogram for malignant neoplasm of breast (principal) | CPT/HCPCS: 77063; 77067 ==

== ENCOUNTER 2023-02-28 14:40 | Emergency (ER) | payer OTHER ==
[2023-02-28 15:54] LABS: Actual Bicarbonate (HCO3v) 23.2 mEq/L (22-28); Base Excess -1.7 mEq/L (-2.0 to +3.0); Calcium, Ionized (venous) 1.01 mmol/L (1.16-1.32); Chloride (VBG) 103 mmol/L (98-106); Hematocrit-VBG 44 % (36.0-47.0); Potassium (VBG) 3.91 mmol/L (3.70-5.30); Sodium 136.9 mmol/L (133-146); pH (venous) 7.383 (7.32-7.43)
[2023-02-28 15:58] LABS: #Eosinphils 0.3 thou/uL (0.0-0.7); #Monocytes 0.4 thou/uL (0.11-0.59); #Neutrophils 3.6 thou/uL (1.40-6.50); %Basophils 0.3 % (0.0-1.0); %Eosinophils 3.7 % (0.0-10.0); %Lymphocytes 42.6 % (21.0-51.0); %Monocytes 5.7 % (0.0-10.0); %Neutrophils 47.4 % (42.0-75.0); Hematocrit 42.8 % (36.0-47.0); Hemoglobin 13.7 g/dL (12.0-16.0); Mean Corpuscular Hemoglobin 30.5 pg (27.0-31.0); Mean Corpuscular Volume 95.3 fl (78.0-98.0); Mean Platelet Volume 11.4 fL (7.4-10.4); Platelet Count 224 10x3/uL (130-400); RBC Distribution Width 13.6 % (11.5-14.5); Red Blood Cell (RBC) Count 4.49 mill/uL (4.20-5.40); White Blood Cell (WBC) Count 7.5 10x3/uL (4.8-10.8)
[2023-02-28 16:20] LABS: Albumin 3.6 g/dL (3.4-4.8); Troponin I Less than 0.010 ng/mL (< 0.028)
[2023-02-28 16:21] LABS: Chloride 102 mmol/L (98-107); Potassium 3.7 mmol/L (3.5-5.1); Sodium 135 mmol/L (136-145)
[2023-02-28 16:22] LABS: Calcium 8.7 mg/dL (7.8-10.44)
[2023-02-28 16:23] LABS: Globulin 4.1 g/dL (2.4-3.5); Glucose 282 mg/dL (80-115); Protein, Total 7.7 g/dL (5.8-8.1)
[2023-02-28 16:24] LABS: Anion Gap 16 mmol/L (10-20); Carbon Dioxide 21 mmol/L (23-31)
[2023-02-28 16:25] LABS: Bilirubin, Total 0.4 mg/dL (0.2-1.2)
[2023-02-28 16:26] LABS: Alkaline Phosphatase 218 U/L (40-110); Calc. Creatinine Clearance 0 mL/min (70-130); Estimated GFR 78
[2023-02-28 16:27] LABS: BUN (Urea Nitrogen) 9 mg/dL (9.8-20.1)
[2023-02-28 16:28] LABS: AST (SGOT) 23 U/L (5-34)
[2023-02-28 16:29] LABS: ALT (SGPT) 27 U/L (8-55); Lipase 10 U/L (8-78)
[2023-02-28] MEDS ORDERED: Ondansetron ODT 4 MG TAB ONE (16:43)
== END 2023-02-28 14:59 | disposition home or self-care (01) ==
LOC: ERS 14:40
DX: E11.65 Type 2 diabetes mellitus with hyperglycemia (principal); J44.9 Chronic obstructive pulmonary disease, unspecified; I25.2 Old myocardial infarction; Z87.891 Personal history of nicotine dependence; Z79.899 Other long term (current) drug therapy
CPT/HCPCS: 36416; 80053; 82010; 82805; 83690; 84484; 85025; 96360; Q0162

== ENCOUNTER 2024-06-07 18:23 | Emergency (ER) | payer OTHER ==
[~2024-06-07 18:23] MED LIST changes: -Iopamidol 370 76% 100 ML VIAL ONE; -Iopamidol 370 76% 50 ML VIAL FS ONE; +Iopamidol-370 76% 500 ML MDV (1 ML CHARGE) ONE
[2024-06-07 19:12] LABS: #Basophils 0.04 10x3/uL (0.0-0.2); %Basophils 0.6 % (0.0-1.0); %Eosinophils 5.2 % (0.0-10.0); %Lymphocytes 46.6 % (21.0-51.0); %Monocytes 6.9 % (0.0-10.0); %Neutrophils 40.4 % (42.0-75.0); Hemoglobin 13.8 g/dL (12.0-16.0); Mean Corpuscular HGB CONC 33.7 g/dL (32.0-36.0); Mean Corpuscular Hemoglobin 31.4 pg (27.0-31.0); Mean Corpuscular Volume 93.4 fL (78.0-98.0); Mean Platelet Volume 10.5 fL (7.4-10.4); Platelet Count 227 10x3/uL (130-400); RBC Distribution Width 13.7 % (11.5-14.5); Red Blood Cell (RBC) Count 4.39 mill/uL (4.20-5.40)
[2024-06-07] MEDS ORDERED: Morphine 4 MG/ML VIAL ONE (19:17)
[2024-06-07] MEDS ORDERED: Ondansetron PF 4 MG/2 ML Vial ONE (19:18)
[2024-06-07 19:50] LABS: Troponin I Less than 0.010 ng/mL (< 0.028)
[2024-06-07 20:06] LABS: Actual Bicarbonate (HCO3v) 25.6 mEq/L (22-28); Base Excess -0.3 mEq/L (-2.0 to +3.0); Calcium, Ionized (venous) 1.14 mmol/L (1.16-1.32); Chloride (VBG) 102 mmol/L (98-106); Hematocrit-VBG 41 % (36.0-47.0); Hemoglobin (Hb) 14.1 g/dL (11.7-16.1); Potassium (VBG) 3.89 mmol/L (3.70-5.30); Sodium 141 mmol/L (133-146); pH (venous) 7.361 (7.32-7.43)
[2024-06-07 20:12] LABS: ALT (SGPT) 29 U/L (8-55); AST (SGOT) 27 U/L (5-34); Alkaline Phosphatase 206 U/L (40-110); Anion Gap 13 mmol/L (10-20); BUN (Urea Nitrogen) 15 mg/dL (9.8-20.1); Bilirubin, Total 0.3 mg/dL (0.2-1.2); Calc. Creatinine Clearance 0 mL/min (70-130); Calcium 9.1 mg/dL (7.8-10.44); Carbon Dioxide 27 mmol/L (23-31); Chloride 105 mmol/L (98-107); Estimated GFR 91; Globulin 4.5 g/dL (2.4-3.5); Glucose 183 mg/dL (80-115); Lipase 14 U/L (8-78); Potassium 3.9 mmol/L (3.5-5.1); Protein, Total 7.5 g/dL (5.8-8.1); Sodium 141 mmol/L (136-145)
[2024-06-07 21:20] LABS: Bacteria/HPF None Seen HPF (None Seen); Bilirubin Negative (Negative); Blood, Urine Negative (Negative); CAUTI Indications for Culture Alt mental st,lethar; Clarity Clear (Clear); Glucose, Urine (Dipstick) Normal (Negative); Ketone, Urine Negative (Negative); Leukocyte Negative Leu/uL (Negative); Nitrite Negative (Negative); Protein, Urine (Dipstick) Negative (Neg-Trace); RBC/HPF 0-3 HPF (0-3); Specific Gravity, Urine 1.026 (1.002-1.036); Squamous Epithelial 0-3 HPF (0-3); Urobilinogen Normal mg/dL (Less than 2); WBC/HPF None Seen HPF (0-3); pH, Urine 6.5 (5.0-9.0)
[2024-06-07 21:23] LABS: Urine Culture Reflex No No
== END 2024-06-07 21:52 | disposition home or self-care (01) ==
LOC: ERS 18:23
DX: R10.9 Unspecified abdominal pain (principal); E11.40 Type 2 diabetes mellitus with diabetic neuropathy, unspecified; J44.9 Chronic obstructive pulmonary disease, unspecified; I25.2 Old myocardial infarction; Z55.6 Problems related to health literacy; Z79.4 Long term (current) use of insulin; Z79.84 Long term (current) use of oral hypoglycemic drugs; Z79.899 Other long term (current) drug therapy; Z87.891 Personal history of nicotine dependence
CPT/HCPCS: 36415; 74177; 76705; 80053; 81001; 82010; 82805; 83690; 84484; 85025; 93005; 96374; 96375; J2272; J2405; Q9967

== ENCOUNTER 2025-01-24 14:31 | Outpatient (CLI) | payer OTHER | END 2025-01-24 14:32 | disposition home or self-care (01) | LOC: BICMAMMO 14:31 | PROVIDERS: ATTEND Nurse Practitioner Family | DX: Z12.31 Encounter for screening mammogram for malignant neoplasm of breast (principal) | CPT/HCPCS: 77063; 77067 ==

== ENCOUNTER 2025-03-22 15:25 | Outpatient (CLI) | payer OTHER | END 2025-03-22 15:26 | disposition home or self-care (01) | LOC: BICMAMMO 15:25 | PROVIDERS: ATTEND Nurse Practitioner Family | DX: Z78.0 Asymptomatic menopausal state (principal) | CPT/HCPCS: 77080 ==